=== PATIENT | female | born 1955 | race African-American/Black ===

== ENCOUNTER 2017-08-24 17:50 | Emergency (ER) | payer SELFPAY | END 2017-08-24 19:03 | disposition home or self-care (01) | LOC: ER 17:50 | DX: M25.562 Pain in left knee (principal); I10 Essential (primary) hypertension; I25.2 Old myocardial infarction; F12.10 Cannabis abuse, uncomplicated; F17.200 Nicotine dependence, unspecified, uncomplicated; Z88.6 Allergy status to analgesic agent | CPT/HCPCS: 73564; 99284 ==

== ENCOUNTER 2017-09-10 09:30 | Emergency (ER) | payer SELFPAY ==
[2017-09-10] MEDS: CYCLOBENZAPRINE 10 MG TABLET. PO ×2 (10:08)
[2017-09-10] MEDS: HYDROcodone/APAP 5/325MG 1 TAB TABLET PO ×2 (10:08)
== END 2017-09-10 10:51 | disposition home or self-care (01) ==
LOC: ER 09:30
DX: M47.816 Spondylosis without myelopathy or radiculopathy, lumbar region (principal); M16.11 Unilateral primary osteoarthritis, right hip; M54.31 Sciatica, right side; I25.2 Old myocardial infarction; I10 Essential (primary) hypertension; F12.10 Cannabis abuse, uncomplicated; F10.10 Alcohol abuse, uncomplicated; Z88.6 Allergy status to analgesic agent
CPT/HCPCS: 72100; 73502; 99284

== ENCOUNTER 2018-08-27 11:14 | Emergency (ER) | payer SELFPAY ==
[~2018-08-27] VITALS: Ht 162.6 cm; Wt 56.7 kg
[~2018-08-27 11:14] MED LIST: DICL100G18 TP; LISI-338 PO; METH-37 PO; METH4TAB2 PO; TRAM-48 PO
[2018-08-27 11:24] VITALS: BP 172/91
[2018-08-27] MEDS ORDERED: TRAM50TA PO (11:31)
--- NOTE | 2018-08-27 11:32 | PHYS DOC ---
Past Medical History Past Medical History: Hypertension, [place] Additional Past Medical Histor: "I've passed out before" [place] 2008, Past Surgical History: No Surgical History Alcohol Use: Heavy Drug Use: None Adult General Chief Complaint Chief Complaint: MULTIPLE COMPLAINTS [facility] Patient is a 62 year old [f__sex] who presents with [] Review of Systems Review of Systems Constitutional: Denies fever or chills [] Eyes: Denies change in visual acuity, redness, or eye pain [] HENT: Denies nasal congestion or sore throat [] Respiratory: Denies cough or shortness of breath [] Cardiovascular: No additional information not addressed in HPI [] GI: Denies abdominal pain, nausea, vomiting, bloody stools or diarrhea [] : Denies dysuria or hematuria [] Musculoskeletal: Denies back pain or joint pain [] Integument: Denies rash or skin lesions [] Neurologic: Denies headache, focal weakness or sensory changes [] Endocrine: Denies polyuria or polydipsia [] All other systems were reviewed and found to be within normal limits, except as documented in this note. Allergies Allergies Allergies Coded Allergies Type Severity Reaction Last Updated Verified No Known Medication Allergies Allergy Unknown 09/10/17 Yes aspirin Adverse Reaction Intermediate UPSETS STOMACH 08/02/15 Yes Physical Exam Physical Exam Constitutional: Well developed, well nourished, no acute distress, non-toxic appearance. [] HENT: Normocephalic, atraumatic, bilateral external ears normal, oropharynx moist, no oral exudates, nose normal. [] Eyes: PERRLA, EOMI, conjunctiva normal, no discharge. [] Neck: Normal range of motion, no tenderness, supple, no stridor. [] Cardiovascular:Heart rate regular rhythm, no murmur [] Lungs & Thorax: Bilateral breath sounds clear to auscultation [] Abdomen: Bowel sounds normal, soft, no tenderness, no masses, no pulsatile masses. [] Skin: Warm, dry, no erythema, no rash. [] Back: No tenderness, no CVA tenderness. [] Extremities: No tenderness, no cyanosis, no clubbing, ROM intact, no edema. [] Neurologic: Alert and oriented X 3, normal motor function, normal sensory function, no focal deficits noted. [] Psychologic: Affect normal, judgement normal, mood normal. [] Current Patient Data Vital Signs Vital Signs Date Time Temp Pulse Resp B/P (MAP) Pulse Ox O2 Delivery O2 Flow Rate FiO2 08/27/18 11:24 97.9 109 16 172/91 (118) 97 Room Air 97.9 EKG EKG [] Radiology/Procedures Radiology/Procedures [] Course & Med Decision Making Course & Med Decision Making Pertinent Labs and Imaging studies reviewed. (See chart for details) [] Dragon Disclaimer Dragon Disclaimer This electronic medical record was generated, in whole or in part, using a voice recognition dictation system. Departure Departure Impression: Primary Impression: Shoulder pain Additional Impression: Degenerative joint disease of right hip Disposition: HOME, SELF-CARE Condition: STABLE Referrals: NO PCP (PCP) Patient Instructions: Arthritis, Degenerative-Brief Additional Instructions: Take thr tramadol as directed. Continue to take your scheduled arthritis medications. Follow-up with your primary care provider to let him know your current medications are not controlling her pain. If worsening return to the emergency department. Scripts Tramadol Hcl (TRAMADOL HCL) 50 Mg Tablet 50 MG PO DAILY PRN for PAIN, #10 TAB 0 Refills Prov: HILARY MACK APRN 08/27/18 Problem Qualifiers HILARY MACK APRN Aug 27, 2018 11:32
== END 2018-08-27 11:40 | disposition home or self-care (01) ==
LOC: ER 11:14
DX: M16.11 Unilateral primary osteoarthritis, right hip (principal); M25.512 Pain in left shoulder; I10 Essential (primary) hypertension; I25.2 Old myocardial infarction; F10.20 Alcohol dependence, uncomplicated; Y90.9 Presence of alcohol in blood, level not specified; Z88.6 Allergy status to analgesic agent
CPT/HCPCS: 99283

== ENCOUNTER 2018-10-24 00:25 | Emergency (ER) | payer OTHER ==
[~2018-10-24] VITALS: Ht 162.6 cm; Wt 59.0 kg
[~2018-10-24 00:25] MED LIST changes: +TRAM50TA PO
[2018-10-24 00:45] VITALS: BP 194/91
[2018-10-24] MEDS ORDERED: HYDR-3164 PO (02:09)
[2018-10-24] MEDS ORDERED: ORPH100T PO (02:09)
--- NOTE | 2018-10-24 02:09 | PHYS DOC ---
Past Medical History Past Medical History: Hypertension, [place] Additional Past Medical Histor: "I've passed out before" [place] 2008, Chronic hip pain Past Surgical History: Tubal ligation Alcohol Use: Heavy Drug Use: None Adult General Chief Complaint Chief Complaint: HIP PAIN HPI HPI 62 y/o female presents with history of chronic right hip pain times one year. Patient reports it has been worse over the last several months. Patient reports she has been doing physical therapy without any relief. Patient does report using ibuprofen again without relief. Patient had been previously prescribed tramadol in August, which she again reports without any relief. Denies new trauma. Denies fever or chills. Patient reports she has not followed up with orthopedics. Review of Systems Review of Systems Constitutional: Denies fever or chills [] : Denies dysuria or hematuria [] Musculoskeletal: Denies back pain; reports right hip pain Integument: Denies rash or skin lesions [] Neurologic: Denies headache, focal weakness or sensory changes [] Complete systems were reviewed and found to be within normal limits, except as documented in this note. Current Medications Current Medications Current Medications Medications (Trade) Dose Ordered Sig/Declan Start Time Stop Time Status Last Admin Dose Admin Acetaminophen/ Butalbital/ Caffeine (Fioricet) 1 tab 1X ONCE 10/24/18 02:15 10/24/18 02:27 DC Cyclobenzaprine HCl (Flexeril) 10 mg 1X ONCE 10/24/18 02:30 10/24/18 02:35 DC 10/24/18 02:31 10 MG Ketorolac Tromethamine (Toradol 30mg Vial) 30 mg 1X ONCE 10/24/18 02:15 10/24/18 02:16 DC 10/24/18 02:32 30 MG Allergies Allergies Allergies Coded Allergies Type Severity Reaction Last Updated Verified No Known Medication Allergies Allergy Unknown 09/10/17 Yes aspirin Adverse Reaction Intermediate UPSETS STOMACH 08/02/15 Yes Physical Exam Physical Exam Constitutional: Well developed, well nourished, no acute distress, non-toxic appearance. [] HENT: Normocephalic, atraumatic Eyes: Conjunctiva normal, no discharge. [] Neck: Normal range of motion, no tenderness, supple Cardiovascular: Heart rate regular rhythm Lungs & Thorax: Bilateral breath sounds clear to auscultation [] Abdomen: Soft, no tenderness] Skin: Warm, dry, no erythema Extremities: Pain on ROM to right hip, no edema, no deformity, limb neurovascularly intact Neurologic: Alert and oriented X 3, no focal deficits noted. [] Psychologic: Affect normal, judgement normal, mood normal. [] Current Patient Data Vital Signs Vital Signs Date Time Temp Pulse Resp B/P (MAP) Pulse Ox O2 Delivery O2 Flow Rate FiO2 10/24/18 00:45 97.7 91 18 194/91 (125) 100 Room Air 97.7 EKG EKG [] Radiology/Procedures Radiology/Procedures Right hip/pelvis (preliminary interpretation by ED physician): Significant degeneration of right femoral head. No acute fracture noted. Course & Med Decision Making Course & Med Decision Making Pertinent Imaging studies reviewed. (See chart for details) Patient presents with acute on chronic right hip pain. Reports his been taking medication without improvement. Symptomatic treatment provided. X-ray obtained with confirmation of significantly degenerated hip. Patient stable for discharge with outpatient follow-up with PCP/orthopedics. Orthopedic referral provided. Discussed findings and plan with patient and family, who acknowledge understanding and agreement. Dragon Disclaimer Dragon Disclaimer This electronic medical record was generated, in whole or in part, using a voice recognition dictation system. Departure Departure Impression: Primary Impression: Degenerative joint disease of right hip Disposition: HOME, SELF-CARE Condition: STABLE Referrals: LAITH HILLMAN JR, MD (PCP) ANAIS SMITH II, MD Patient Instructions: Arthritis, Degenerative-Brief, Hip Pain Scripts Naproxen (NAPROXEN) 375 Mg Tablet 1 TAB PO BID, #14 TAB 0 Refills Prov: CHRISTOPHER ESCOBAR DO 10/24/18 Orphenadrine Citrate (ORPHENADRINE CITRATE) 100 Mg Tablet.er 1 TAB PO BID PRN for MUSCLE PAIN, #14 TAB Prov: CHRISTOPHER ESCOBAR DO 10/24/18 Hydrocodone/Apap 5-325 (NORCO 5-325 TABLET) 1 Each Tablet 0.5 TAB PO PRN Q6HRS PRN for PAIN, #8 TAB 0 Refills Prov: CHRISTOPHER ESCOBAR DO 10/24/18 Problem Qualifiers Primary Impression: Degenerative joint disease of right hip Osteoarthritis type: unspecified Qualified Codes: M16.11 - Unilateral primary osteoarthritis, right hip CHRISTOPHER ESCOBAR DO Oct 24, 2018 02:09
[2018-10-24] MEDS ORDERED: NAPR-695 PO (02:11)
[2018-10-24] MEDS ORDERED: BUTALB/APAP/CAFEIN 50/325/40MG TABLET. PO ONE (02:15)
[2018-10-24] MEDS ORDERED: KETOROLAC 30 MG/ML VIAL. IM ONE (02:15)
[2018-10-24] MEDS ORDERED: CYCLOBENZAPRINE 10 MG TABLET. PO ONE (02:30)
--- NOTE | 2018-10-24 07:02 | RAD ---
EXAM: AP pelvis, AP and lateral views of the right hip DATE: 10/24/2018 1:59 AM INDICATION: RIGHT HIP PAIN COMPARISON: 09/10/2017 FINDINGS: Collapse and sclerosis of the right femoral head likely from osteonecrosis or rapidly progressing pulmonary, new compared to 09/10/2017. Left hip joint space is preserved. Decreased bone mineral density. No evidence of acute fracture or dislocation. IMPRESSION: Compared to prior radiograph 09/10/2017 there is now collapse of the right femoral head possibly from osteonecrosis, mildly progressive hip OA or other arthropathy.. Electronically signed by: Tyler Olivo MD (10/24/2018 6:59 AM) [facility]
== END 2018-10-24 02:35 | disposition home or self-care (01) ==
LOC: ER 00:25
DX: M16.11 Unilateral primary osteoarthritis, right hip (principal); G89.29 Other chronic pain; I10 Essential (primary) hypertension; I25.2 Old myocardial infarction; Z98.51 Tubal ligation status; Z88.6 Allergy status to analgesic agent
CPT/HCPCS: 73502; 96372; 99283; J1885

== ENCOUNTER 2018-10-28 11:48 | Emergency (ER) | payer SELFPAY ==
[~2018-10-28] VITALS: Ht 162.6 cm; Wt 59.0 kg
[~2018-10-28 11:48] MED LIST changes: +HYDR-3164 PO; +NAPR-695 PO; +ORPH100T PO
[2018-10-28 12:00] VITALS: BP 141/77
--- NOTE | 2018-10-28 12:39 | PHYS DOC ---
Past Medical History Past Medical History: Hypertension, [place] Additional Past Medical Histor: "I've passed out before" [place] 2008, Past Surgical History: Tubal ligation Alcohol Use: Heavy Drug Use: None Adult General Chief Complaint Chief Complaint: FACE PROBLEM HPI HPI Patient is a 62 year old female with history of hypertension, [place], who presents to the ED today complaining of swelling on the right lower gum that she noted this morning. Patient denies any fever or trismus. Review of Systems Review of Systems Constitutional: Denies fever or chills [] Eyes: Denies change in visual acuity, redness, or eye pain [] HENT: Reports swelling on the right lower gum. Denies nasal congestion or sore throat [] Musculoskeletal: Denies back pain or joint pain [] Integument: Denies rash or skin lesions [] Neurologic: Denies headache, focal weakness or sensory changes [] All other systems were reviewed and found to be within normal limits, except as documented in this note. Allergies Allergies Allergies Coded Allergies Type Severity Reaction Last Updated Verified No Known Medication Allergies Allergy Unknown 09/10/17 Yes aspirin Adverse Reaction Intermediate UPSETS STOMACH 08/02/15 Yes Physical Exam Physical Exam Constitutional: Well developed, well nourished, no acute distress, non-toxic appearance. [] HENT: Normocephalic, atraumatic, bilateral external ears normal, oropharynx moist, no oral exudates, nose normal. Edentulous patient. Right lower cheek with small amount of swelling suspicious of a dental abscess thought this could also be an insect bite considering there is no erythema to the gum, there is no fluctuance to this area. Skin: Warm, dry, no erythema, no rash. [] Back: No tenderness, no CVA tenderness. [] Extremities: No tenderness, no cyanosis, no clubbing, ROM intact, no edema. [] Neurologic: Alert and oriented X 3, normal motor function, normal sensory function, no focal deficits noted. [] Psychologic: Affect normal, judgement normal, mood normal. [] Current Patient Data Vital Signs Vital Signs Date Time Temp Pulse Resp B/P (MAP) Pulse Ox O2 Delivery O2 Flow Rate FiO2 10/28/18 12:00 98.4 103 16 141/77 (98) 99 Room Air 98.4 EKG EKG [] Radiology/Procedures Radiology/Procedures [] Course & Med Decision Making Course & Med Decision Making Pertinent Labs and Imaging studies reviewed. (See chart for details) This is a 62-year-old female patient presenting to the ED today with right lower gum cheek swelling noted this morning. Right lower cheek with small amount of swelling suspicious of a dental abscess though this could also be an insect bite considering there is no erythema to the gum, there is no fluctuance to this area either. Patient was discharged on amoxicillin, also discharged on Benadryl. Follow-up with her own doctor in 1-2 weeks. Dragon Disclaimer Dragon Disclaimer This electronic medical record was generated, in whole or in part, using a voice recognition dictation system. Departure Departure Impression: Primary Impression: Dental abscess Additional Impression: Insect bite Disposition: HOME, SELF-CARE Condition: STABLE Referrals: LAITH HILLMAN JR, MD (PCP) follow up in 1-2 weeks Patient Instructions: Dental Abscess, Insect Bite, [id number] Additional Instructions: You were seen for swollen area on your right cheek, this could be a dental abscess but it could also be an insect bite. Continue taking Benadryl. Take the prescribed antibiotics until completed. Follow-up with your doctor in 1-2 weeks. Scripts Amoxicillin (AMOXICILLIN) 500 Mg Tablet 1 TAB PO BID, #20 TAB Prov: LAURA PERRY APRN 10/28/18 Problem Qualifiers Additional Impression: Insect bite Encounter type: initial encounter Site of insect bite: unspecified site Qualified Codes: W57.XXXA - Bitten or stung by nonvenomous insect and other nonvenomous arthropods, initial encounter LAURA PERRY APRN Oct 28, 2018 12:39
[2018-10-28] MEDS ORDERED: AMOX500T PO (12:47)
== END 2018-10-28 13:06 | disposition home or self-care (01) ==
LOC: ER 11:48
DX: K04.7 Periapical abscess without sinus (principal); I10 Essential (primary) hypertension; I25.2 Old myocardial infarction; Z98.51 Tubal ligation status; F10.20 Alcohol dependence, uncomplicated; Y90.9 Presence of alcohol in blood, level not specified; Z88.6 Allergy status to analgesic agent; W57.XXXA Bitten or stung by nonvenomous insect and other nonvenomous arthropods, initial encounter; Y93.89 Activity, other specified; Y92.89 Other specified places as the place of occurrence of the external cause; Y99.8 Other external cause status
CPT/HCPCS: 99283

== ENCOUNTER 2018-11-25 10:17 | Emergency (ER) | payer SELFPAY ==
[~2018-11-25] VITALS: Ht 162.6 cm; Wt 59.0 kg
[~2018-11-25 10:17] MED LIST changes: +AMOX500T PO
[2018-11-25 10:54] VITALS: BP 162/93
[2018-11-25] MEDS ORDERED: KETOROLAC 60 MG/2 ML VIAL. IM ONE (11:00)
--- NOTE | 2018-11-25 11:20 | PHYS DOC ---
Past Medical History Past Medical History: Hypertension, [place] Additional Past Medical Histor: "I've passed out before" [place] 2008, Past Surgical History: Tubal ligation Alcohol Use: Heavy Drug Use: None Adult General Chief Complaint Chief Complaint: HIP PAIN HPI HPI Patient is a 63 year old female presents to the ED complaining of right hip pain. States the pain started to worsen about a week ago. Patient had some other symptoms a month ago and had been told that she has arthritis. Describes the pain as sharp. Rates the pain as 8 out 10. Patient able to ambulate without assistance. States she has been taking Tylenol at home without relief. Patient has plans to follow-up with an orthopedic doctor in [place] later this month. Denies injury, weakness, paresthesias, calf pain/swelling, fever, nausea/vomiting, chest pain, abdominal pain or shortness of breath. Review of Systems Review of Systems Constitutional: Denies fever or chills [] Eyes: Denies change in visual acuity, redness, or eye pain [] HENT: Denies nasal congestion or sore throat [] Respiratory: Denies cough or shortness of breath [] Cardiovascular: No additional information not addressed in HPI [] GI: Denies abdominal pain, nausea, vomiting, bloody stools or diarrhea [] : Denies dysuria or hematuria [] Musculoskeletal: Complains of hip pain. Denies back pain. [] Integument: Denies rash or skin lesions [] Neurologic: Denies headache, focal weakness or sensory changes [] All other systems were reviewed and found to be within normal limits, except as documented in this note. Current Medications Current Medications Current Medications Medications (Trade) Dose Ordered Sig/[facility] Start Time Stop Time Status Last Admin Dose Admin Ketorolac Tromethamine (Toradol Im) 30 mg 1X ONCE 11/25/18 11:00 11/25/18 11:03 DC 11/25/18 11:00 30 MG Allergies Allergies Allergies Coded Allergies Type Severity Reaction Last Updated Verified No Known Medication Allergies Allergy Unknown 09/10/17 Yes aspirin Adverse Reaction Intermediate UPSETS STOMACH 08/02/15 Yes Physical Exam Physical Exam Constitutional: Well developed, well nourished, no acute distress, non-toxic appearance. [] HENT: Normocephalic, atraumatic Eyes: PERRLA, EOMI, conjunctiva normal, no discharge. [] Neck: Normal range of motion, no tenderness, supple, no stridor. [] Cardiovascular:Heart rate regular rhythm, no murmur [] Lungs & Thorax: Bilateral breath sounds clear to auscultation [] Abdomen: Bowel sounds normal, soft, no tenderness, no masses, no pulsatile masses. [] Skin: Warm, dry, no erythema, no rash. [] Back: No tenderness, no CVA tenderness. [] Extremities: Mild right lateral hip tenderness, no cyanosis, no clubbing, No overlying skin changes. ROM intact, no edema. 2+ pulses. [] Neurologic: Alert and oriented X 3, normal motor function, normal sensory function, no focal deficits noted. [] Psychologic: Affect normal, judgement normal, mood normal. [] Current Patient Data Vital Signs Vital Signs Date Time Temp Pulse Resp B/P (MAP) Pulse Ox O2 Delivery O2 Flow Rate FiO2 11/25/18 10:54 97.8 103 16 162/93 (116) 99 Room Air 97.8 EKG EKG [] Radiology/Procedures Radiology/Procedures []PROCEDURE: HIP RIGHT 2V WITH PELVIS AP view of the pelvis, additional views right hip 11/25/2018 INDICATION: Right hip pain COMPARISON STUDY: Right hip radiographs October 24, 2018 Discussion: Again seen is severe degenerative change of the right hip. Sclerosis and deformity of the right femoral head suggests possible prior necrosis. There is essentially obliteration of the joint space. No acute soft tissue changes are appreciated radiographically. No evidence of acute fracture is identified. IMPRESSION: Grossly stable severe degenerative changes of the right hip. Course & Med Decision Making Course & Med Decision Making Pertinent Labs and Imaging studies reviewed. (See chart for details) Discussed imaging findings with patient. Patient able to ambulate without assistance. No traumatic injury. Discussed follow-up with orthopedics as scheduled. We'll prescribe analgesics outpatient. Discussed reasons to return to the ED. Patient understands and agrees with plan. Dragon Disclaimer Dragon Disclaimer This electronic medical record was generated, in whole or in part, using a voice recognition dictation system. Departure Departure Impression: Primary Impression: Arthritis Additional Impression: Hip pain, right Disposition: HOME, SELF-CARE Condition: IMPROVED Referrals: LAITH HLILMAN JR, MD (PCP) Patient Instructions: Arthritis, Nonspecific, Hip Pain Scripts Hydrocodone/Apap 5-325 (NORCO 5-325 TABLET) 1 Each Tablet 1 TAB PO BID for 4 Days, #8 TAB Prov: DONTE KENNEDY 11/25/18 Problem Qualifiers DONTE KENNEDY November 25, 2018 11:19
[2018-11-25] MEDS ORDERED: HYDR-3164 PO (11:24)
== END 2018-11-25 11:34 | disposition home or self-care (01) ==
LOC: ER 10:17
DX: M16.11 Unilateral primary osteoarthritis, right hip (principal); I10 Essential (primary) hypertension; I25.2 Old myocardial infarction; F10.20 Alcohol dependence, uncomplicated; Y90.9 Presence of alcohol in blood, level not specified; Z98.51 Tubal ligation status; Z88.6 Allergy status to analgesic agent
CPT/HCPCS: 73502; 96372; 99284; J1885

== ENCOUNTER 2020-09-18 12:58 | Inpatient (IN) | payer SELFPAY ==
[~2020-09-18] VITALS: Ht 162.6 cm; Wt 58.1 kg
[~2020-09-18 12:58] MED LIST changes: -DICL100G18 TP; +DICL100G54 TP; -LISI-338 PO; +LISI-517 PO
[2020-09-18 13:48] LABS: BASO # 0.1 x10^3/uL (0.0-0.2); BASO % 1 % (0-3); EOS # 0.1 x10^3/uL (0.0-0.7); EOS % 3 % (0-3); HEMATOCRIT 33.3 % (36.0-47.0); HEMOGLOBIN 11.3 g/dL (12.0-15.5); LYMPH # 1.5 x10^3/uL (1.0-4.8); LYMPH % 31 % (24-48); MEAN CORPUSCULAR HEMOGLOBIN 31 pg (25-35); MEAN CORPUSCULAR HGB CONC 34 g/dL (31-37); MEAN CORPUSCULAR VOLUME 92 fL (79-100); MONO # 0.4 x10^3/uL (0.0-1.1); MONO % 7 % (0-9); NEUT # 2.8 x10^3/uL (1.8-7.7); NEUT % 58 % (31-73); PLATELET COUNT 241 x10^3/uL (140-400); RED BLOOD COUNT 3.62 x10^6/uL (3.50-5.40); RED CELL DISTRIBUTION WIDTH 13.4 % (11.5-14.5); WHITE BLOOD COUNT 4.8 x10^3/uL (4.0-11.0)
[2020-09-18 14:01] LABS: CALCIUM 9.1 mg/dL (8.5-10.1); CREATININE 1.3 mg/dL (0.6-1.0); GFR 50.1; POTASSIUM 5.1 mmol/L (3.5-5.1)
--- NOTE | 2020-09-18 14:02 | RAD ---
INDICATION: Reason: chest pain / Spl. Instructions: / History: COMPARISON: January 01, 2018 FINDINGS: Single view of chest obtained. Cardiac silhouette is not enlarged. Calcific atherosclerosis. Coarsened lung markings appear similar to prior without a new region of consolidation. IMPRESSION: * Similar appearance of the chest compared to prior without new region of consolidation. Electronically signed by: Barney Nicholson MD (09/18/2020 1:59 PM) [id number]
[2020-09-18 14:06] LABS: ALBUMIN 4.1 g/dL (3.4-5.0); ALBUMIN/GLOBULIN RATIO 1.1 (1.0-1.7); MAGNESIUM 1.5 mg/dL (1.8-2.4); TOTAL BILIRUBIN 0.4 mg/dL (0.2-1.0); TOTAL PROTEIN 7.9 g/dL (6.4-8.2)
[2020-09-18] MEDS ORDERED: MAGNESIUM SULFATE 2GM 50 ML IV ONE (14:15)
[2020-09-18] MEDS ORDERED: METOPROLOL IV PUSH 5 MG/5 ML VIAL. IVP ONE (14:30)
[2020-09-18] MEDS ORDERED: IOHEXOL 350 MG/ML 100 ML VIAL. IV ONE (15:15)
--- NOTE | 2020-09-18 15:15 | PHYS DOC ---
Past Medical History Past Medical History: Hypertension, [place] Additional Past Medical Histor: "I've passed out before" [place] 2009, Past Surgical History: Tubal ligation Smoking Status: Current Every Day Smoker Alcohol Use: Heavy Drug Use: None General Adult EDM: Chief Complaint: CHEST PAIN HPI: HPI: Patient is a 64 year old female who presented to ER for evaluation of right-lamont ed chest pain started 2 days ago. Patient also had trouble breathing, chest pain he had worse with exertion or cough. Patient has history of COVID-19 infection last year. Patient denies any fever. Patient has history of coronary disease the past, has history of hypertension. Patient denies any abdominal pain, no nausea vomiting. Review of Systems: Review of Systems: Constitutional: Denies fever or chills. [] Eyes: Denies change in visual acuity. [] HENT: Denies nasal congestion or sore throat. [] Respiratory: Denies cough, positive for trouble breathing. Cardiovascular: Positive for chest pain, no edema GI: Denies abdominal pain, nausea, vomiting, bloody stools or diarrhea. [] : Denies dysuria. [] Musculoskeletal: Denies back pain or joint pain. [] Integument: Denies rash. [] Neurologic: Denies headache, focal weakness or sensory changes. [] Endocrine: Denies polyuria or polydipsia. [] Lymphatic: Denies swollen glands. [] Psychiatric: Denies depression or anxiety. [] Heart Score: HEART Score for Chest Pain: HEART Score for Chest Pain Response (Comments) Value History Moderately Suspicious 1 ECG Nonspecific Repolarizatio 1 Age >45 - < 65 1 Risk Factors >3 Risk Factors or Hx CAD 2 Troponin < Normal Limit 0 Total 5 Risk Factors: Risk Factors: DM, Current or recent (<one month) smoker, HTN, HLP, family history of CAD, obesity. Risk Scores: Score 0 - 3: 2.5% MACE over next 6 weeks - Discharge Home Score 4 - 6: 20.3% MACE over next 6 weeks - Admit for Clinical Observation Score 7 - 10: 72.7% MACE over next 6 weeks - Early Invasive Strategies Current Medications: Current Medications Medications (Trade) Dose Ordered Sig/Declan Start Time Stop Time Status Last Admin Dose Admin Magnesium Sulfate 50 ml @ 25 mls/hr 1X ONCE 09/18/20 14:15 09/18/20 16:14 09/18/20 14:35 25 MLS/HR Metoprolol Tartrate (Lopressor Vial) 5 mg 1X ONCE 09/18/20 14:30 09/18/20 14:31 DC 09/18/20 14:34 5 MG Allergies: Allergies: Allergies Coded Allergies Type Severity Reaction Last Updated Verified No Known Medication Allergies Allergy Unknown 09/10/17 Yes aspirin Adverse Reaction Intermediate UPSETS STOMACH 08/02/15 Yes Physical Exam: PE: Constitutional: Well developed, well nourished, no acute distress, non-toxic appearance. [] HENT: Normocephalic, atraumatic, bilateral external ears normal, oropharynx moist, no oral exudates, nose normal. [] Eyes: PERRLA, EOMI, conjunctiva normal, no discharge. [] Neck: Normal range of motion, no tenderness, supple, no stridor. [] Cardiovascular: Sinus tachycardia, regular rhythm, no murmur [] Lungs & Thorax: Bilateral breath sounds clear to auscultation [] Abdomen: Bowel sounds normal, soft, no tenderness, no masses, no pulsatile masses. [] Skin: Warm, dry, no erythema, no rash. [] Back: No tenderness, no CVA tenderness. [] Extremities: No tenderness, no cyanosis, no clubbing, ROM intact, no edema. [] Neurologic: Alert and oriented X 3, normal motor function, normal sensory function, no focal deficits noted. [] Psychologic: Affect normal, judgement normal, mood normal. [] Current Patient Data: Labs: Laboratory Tests Test 09/18/20 13:33 White Blood Count 4.8 x10^3/uL (4.0-11.0) Red Blood Count 3.62 x10^6/uL (3.50-5.40) Hemoglobin 11.3 g/dL (12.0-15.5) L Hematocrit 33.3 % (36.0-47.0) L Mean Corpuscular Volume 92 fL (79-100) Mean Corpuscular Hemoglobin 31 pg (25-35) Mean Corpuscular Hemoglobin Concent 34 g/dL (31-37) Red Cell Distribution Width 13.4 % (11.5-14.5) Platelet Count 241 x10^3/uL (140-400) Neutrophils (%) (Auto) 58 % (31-73) Lymphocytes (%) (Auto) 31 % (24-48) Monocytes (%) (Auto) 7 % (0-9) Eosinophils (%) (Auto) 3 % (0-3) Basophils (%) (Auto) 1 % (0-3) Neutrophils # (Auto) 2.8 x10^3/uL (1.8-7.7) Lymphocytes # (Auto) 1.5 x10^3/uL (1.0-4.8) Monocytes # (Auto) 0.4 x10^3/uL (0.0-1.1) Eosinophils # (Auto) 0.1 x10^3/uL (0.0-0.7) Basophils # (Auto) 0.1 x10^3/uL (0.0-0.2) Sodium Level 139 mmol/L (136-145) Potassium Level 5.1 mmol/L (3.5-5.1) Chloride Level 101 mmol/L (98-107) Carbon Dioxide Level 19 mmol/L (21-32) L Anion Gap 19 (6-14) H Blood Urea Nitrogen 15 mg/dL (7-20) Creatinine 1.3 mg/dL (0.6-1.0) H Estimated GFR (Cockcroft-Gault) 50.1 BUN/Creatinine Ratio 12 (6-20) Glucose Level 60 mg/dL (70-99) L Calcium Level 9.1 mg/dL (8.5-10.1) Magnesium Level 1.5 mg/dL (1.8-2.4) L Total Bilirubin 0.4 mg/dL (0.2-1.0) Aspartate Amino Transferase (AST) 87 U/L (15-37) H Alanine Aminotransferase (ALT) 57 U/L (14-59) Alkaline Phosphatase 85 U/L (46-116) Troponin I Quantitative < 0.017 ng/mL (0.000-0.055) HN-Mmm-O-Type Natriuretic Peptide 252 pg/mL (0-124) H Total Protein 7.9 g/dL (6.4-8.2) Albumin 4.1 g/dL (3.4-5.0) Albumin/Globulin Ratio 1.1 (1.0-1.7) Lipase 137 U/L (73-393) Laboratory Tests 09/18/20 13:33 Laboratory Tests 09/18/20 13:33 Vital Signs: Vital Signs Date Time Temp Pulse Resp B/P (MAP) Pulse Ox O2 Delivery O2 Flow Rate FiO2 09/18/20 14:34 114 141/86 09/18/20 13:05 98.2 29 99 Room Air 98.2 EKG: EKG: EKG was done at 1315, heart rate 121 bpm, sinus tachycardia, no ST segment elevation. Radiology/Procedures: Radiology/Procedures: [][facility] [address] [place] [address] IMAGING REPORT Signed PATIENT: LAURA PINEDA ACCOUNT: [id number] : 1955 LOCATION: ER AGE: 64 SEX: F EXAM STATUS: REG ER ORD. PHYSICIAN: REGAN TURCIOS DO REASON: CHEST PAIN, SOA PROCEDURE: CT ANGIOGRAPHY CHEST Study: CT CHEST WITH CONTRAST - PULMONARY ANGIOGRAM History: Chest pain. Shortness of air. Comparison: 11/18/2013 Technique: Helical CT of the chest performed after the administration of 60 cc Omnipaque 350 intravenous contrast and timed for angiographic evaluation of the pulmonary arteries per PE protocol. Coronal and sagittal 3D MIP reformations were obtained. One or more of the following individualized dose reduction techniques were utilized for this examination: 1. Automated exposure control 2. Adjustment of the mA and/or kV according to patient size 3. Use of iterative reconstruction technique. Findings: Pulmonary Arteries: No main, lobar or segmental pulmonary embolism. Heart/Systemic Vasculature: Multifocal calcified and noncalcified atheromatous plaque to include coronary artery involvement. No aortic aneurysm or dissection. Patent partially imaged great vessels. No CT manifestations of right heart strain. Mediastinum: Scattered granulomas. No pathologically enlarged noncalcified lymph nodes. Lungs: Emphysema. No new or enlarging pulmonary nodule. Patent central airways. Neck/Axilla/Body Wall: Unchanged focus of mineralization along the right aspect of the thyroid isthmus. No axillary adenopathy. Upper Abdomen: Hepatic steatosis. Bones: No acute or aggressive osseous process. Scattered degenerative changes. Miscellaneous: None. IMPRESSION: 1. No pulmonary embolism or other acute abnormality seen throughout the chest. 2. Chronic observations detailed in the body the report to include emphysema. If the patient meets screening guidelines annual low dose CT of the chest is r ecommended. Electronically signed by: CATHY DAMON MD (09/18/2020 3:48 PM) [facility] DICTATED and SIGNED BY: CATHY DAMON MD DATE: 09/18/20 [id number] 0 Course & Med Decision Making: Course & Med Decision Making Pertinent Labs and Imaging studies reviewed. (See chart for details) Patient is a 64-year-old female who presented to ER due to chest pain associated with trouble breathing, hypertension. EKG shows sinus tachycardia, her blood pressure was elevated. Cardiac enzyme came back normal. CT scan her chest did not show any acute problem. Patient had COVID-19 infection last year. Due to her risk factors patient will be admitted to hospital for further evaluation and treatment. Patient is amenable to plan of care discussed with hospitalist on- call Dr. Smith who agreed to admit the patient. Dragon Disclaimer: Dragon Disclaimer: This electronic medical record was generated, in whole or in part, using a voice recognition dictation system. Departure Departure Impression: Primary Impression: Chest pain Additional Impression: Hypertension Disposition: ADMITTED INPT THIS HOSP Admitting Physician: BRANDO (Dr. smith) Condition: IMPROVED Referrals: LAITH HILLMAN JR, MD (PCP) REGAN TURCIOS DO Sep 18, 2020 15:15
[2020-09-18] MEDS ORDERED: CONTRAST GIVEN. MC PRN (15:30)
--- NOTE | 2020-09-18 15:50 | RAD ---
Study: CT CHEST WITH CONTRAST - PULMONARY ANGIOGRAM History: Chest pain. Shortness of air. Comparison: 11/18/2013 Technique: Helical CT of the chest performed after the administration of 60 cc Omnipaque 350 intrave nous contrast and timed for angiographic evaluation of the pulmonary arteries per PE protocol. Hart l and sagittal 3D MIP reformations were obtained. One or more of the following individualized dose reduction techniques were utilized for this examinat ion: 1. Automated exposure control 2. Adjustment of the mA and/or kV according to patient size 3. Use of iterative reconstruction technique. Findings: Pulmonary Arteries: No main, lobar or segmental pulmonary embolism. Heart/Systemic Vasculature: Multifocal calcified and noncalcified atheromatous plaque to include litzy nary artery involvement. No aortic aneurysm or dissection. Patent partially imaged great vessels. No CT manifestations of right heart strain. Mediastinum: Scattered granulomas. No pathologically enlarged noncalcified lymph nodes. Lungs: Emphysema. No new or enlarging pulmonary nodule. Patent central airways. Neck/Axilla/Body Wall: Unchanged focus of mineralization along the right aspect of the thyroid isthmu s. No axillary adenopathy. Upper Abdomen: Hepatic steatosis. Bones: No acute or aggressive osseous process. Scattered degenerative changes. Miscellaneous: None. IMPRESSION: 1. No pulmonary embolism or other acute abnormality seen throughout the chest. 2. Chronic observations detailed in the body the report to include emphysema. If the patient meets s creening guidelines annual low dose CT of the chest is recommended. Electronically signed by: CATHY DAMON MD (09/18/2020 3:48 PM) [facility]
--- NOTE | 2020-09-18 15:52 | EKG ---
[facility] [address] [place] [address] Test Date: 2020-09-18 Test Time: 13:15:13 Pat Name: LAURA PINEDA Department: Room: Gender: F [place]: : 1955 Requested By: REGAN TURCIOS Order Number: [id number] Reading MD: Abel Ramirez MD Measurements Intervals [place] Rate: 121 P: 57 OK: 156 QRS: 59 QRSD: 86 T: 75 QT: 316 QTc: 451 Interpretive Statements SINUS TACHYCARDIA Electronically Signed On 09-19-2020 17:14:37 SIGHT MOUNTER by Abel Ramirez MD
[2020-09-18 15:58] LABS: BILIRUBIN,URINE NEGATIVE (NEG); CLARITY,URINE CLEAR; COLOR,URINE YELLOW; NITRITE,URINE NEGATIVE (NEG); PROTEIN,URINE NEGATIVE (NEG-TRACE); UROBILINOGEN,URINE 0.2 mg/dL (0.2 mg/dL)
[2020-09-18 16:09] LABS: BACTERIA,URINE 0 /HPF (0-FEW); RBC,URINE 0 /HPF (0-2); WBC,URINE OCC /HPF (0-4)
[2020-09-18] MEDS ORDERED: MORPHINE SULFATE 4 MG/ML VIAL. IV PRN (16:45)
[2020-09-18] MEDS ORDERED: ONDANSETRON PF 4 MG/2 ML VIAL. IV PRN (16:45)
[2020-09-18 17:40] VITALS: BP 198/99
[2020-09-18] MEDS ORDERED: LISI-130 PO (17:49)
[2020-09-18] MEDS: METOPROLOL IV PUSH 5 MG/5 ML VIAL. IVP PRN (18:07)
[2020-09-18] MEDS ORDERED: DEXTROSE 50% 25 GM / 50ML DISP.SYRIN. IV PRN (18:45)
[2020-09-18] MEDS ORDERED: diazePAM 5 MG TABLET PO ONE (18:45)
--- NOTE | 2020-09-18 18:58 | PDOC1 ---
History and Physical Date of Admission Date of Admission DATE: 09/18/20 TIME: 18:55 Source Source: Chart review, Patient History of Present Illness History of Present Illness is a 64 year old female admit with chest pain, had worsenign pain over the past week, pain worse with exertion, but also with movement, she can press on her right and cause pain. Pain more severe today, she is having a lot of stress from her 15 yo grand- daughter who lives at home and has been out of school for a year due to COVID. Ms. Koch also feels short of breath, has no cough or dyspnea, or general myalgia. Patient has history of COVID-19 infection last year. Past Medical History Cardiovascular: CAD, HTN, [place] Pulmonary: No pertinent hx GI: No pertinent hx Heme/Onc: No pertinent hx Hepatobiliary: No pertinent hx Psych: No pertinent hx Past Surgical History Past Surgical History: No pertinent history Family History Family History: Cancer, Coronary Artery Disease, Hypertension Social History Smoke: 1 pack per day ALCOHOL: heavy Drugs: None Current Problem List Problem List Problems Medical Problems: (1) Chest pain Status: Acute (2) Hypertension Status: Acute Current Medications Current Medications Current Medications Magnesium Sulfate 50 ml @ 25 mls/hr 1X ONCE IV Last administered on 09/18/20at 14:35; Start 09/18/20 at 14:15; Stop 09/18/20 at 16:14; Status DC Metoprolol Tartrate (Lopressor Vial) 5 mg 1X ONCE IVP Last administered on 09/18/20at 14:34; Start 09/18/20 at 14:30; Stop 09/18/20 at 14:31; Status DC Iohexol (Omnipaque 350 Mg/ml) 60 ml 1X ONCE IV Last administered on 09/18/20at 15:36; Start 09/18/20 at 15:15; Stop 09/18/20 at 15:16; Status DC Info (CONTRAST GIVEN -- Rx MONITORING) 1 each PRN DAILY PRN MC SEE COMMENTS; Start 09/18/20 at 15:30; Stop 09/20/20 at 15:29 Ondansetron HCl (Zofran) 4 mg PRN Q8HRS PRN IV NAUSEA/VOMITING; Start 09/18/20 at 16:45; Stop 09/19/20 at 16:44 Morphine Sulfate (Morphine Sulfate) 4 mg PRN Q2HR PRN IV PAIN Last administered on 09/18/20at 18:07; Start 09/18/20 at 16:45; Stop 09/19/20 at 16:44 Metoprolol Tartrate (Lopressor Vial) 5 mg PRN Q6HRS PRN IVP HYPERTENSION Last administered on 09/18/20at 18:07; Start 09/18/20 at 17:45 Metoprolol Tartrate (Lopressor) 50 mg BID PO ; Start 09/18/20 at 21:00 Active Scripts Active Reported Lisinopril 40 Mg Tablet 1 Tab PO DAILY Allergies Allergies: Coded Allergies: aspirin (Verified Adverse Reaction, Intermediate, UPSETS STOMACH, 08/02/15) ROS General: No: Chills, Night Sweats, Fatigue, Malaise, Appetite, Other PSYCHOLOGICAL ROS: YES: Irritablity, Sleep disturbances; No: Anxiety, Behavioral Disorder, Concentration difficultie, Decreased libido, Depression, Disorientation, Hallucinations, Hostility, Memory difficulties, Mood Swings, Obsessive thoughts, Physical abuse, Sexual abuse, Suicidal ideation, Other Eyes: No Blurry vision, No Decreased vision, No Double vision, No Dry eyes, No Eye Pain, No Itchy Eyes, No Loss of vision, No Photophobia, No Scotomata, No Uses contacts, No Uses glasses, No Other HEENT: YES: Heacaches Respiratory: No: Cough, Hemoptysis, Orthopnea, Pleuritic Pain, Shortness of breath, SOB with excertion, Sputum Changes, Stridor, Tachypnea, Wheezing, Other Cardiovascular: yes Chest Pain; No Palpitations, No Orthopnea, No Paroxysmal Noc. Dyspnea, No Edema, No Lt Headedness, No Other Gastrointestinal: No Nausea, No Vomiting, No Abdominal Pain, No Diarrhea, No Constipation, No Melena, No Hematochezia, No Other Genitourinary: No Dysuria, No Frequency, No Incontinence, No Hematuria, No Retention, No Discharge, No Urgency, No Pain, No Flank Pain, No Other, No , No , No , No , No , No , No Musculoskeletal: Yes Joint Pain (shoulder, ), Yes Joint Stiffness Neurological: No Behavorial Changes, No Bowel/Bladder ControlChng, No Confusion, No Dizziness, No Gait Disturbance, No Headaches, No Impaired Coord/balance, No Memory Loss, No Numbness/Tingling, No Seizures, No Speech Problems, No Tremors, No Visual Changes, No Weakness, No Other Skin: Yes Dry Skin Physical Exam General: Alert, Oriented X3, Cooperative, mild distress HEENT: Atraumatic, PERRLA Lungs: Clear to auscultation Heart: S1S2, RRR Abdomen: Normal bowel sounds, Soft Extremities: No clubbing Skin: No rashes Neuro: Normal speech, Sensation intact, Other (mild asterixis, 2 beat nys tagmus, ) Psych/Mental Status: Mood NL Vitals Vitals Vital Signs Date Time Temp Pulse Resp B/P (MAP) Pulse Ox O2 Delivery O2 Flow Rate FiO2 09/18/20 18:07 107 198/99 09/18/20 18:07 18 Room Air 09/18/20 17:40 97.9 98 97.9 Labs Labs Laboratory Tests Test 09/18/20 13:33 09/18/20 15:47 09/18/20 18:03 White Blood Count 4.8 x10^3/uL (4.0-11.0) Red Blood Count 3.62 x10^6/uL (3.50-5.40) Hemoglobin 11.3 g/dL (12.0-15.5) Hematocrit 33.3 % (36.0-47.0) Mean Corpuscular Volume 92 fL (79-100) Mean Corpuscular Hemoglobin 31 pg (25-35) Mean Corpuscular Hemoglobin Concent 34 g/dL (31-37) Red Cell Distribution Width 13.4 % (11.5-14.5) Platelet Count 241 x10^3/uL (140-400) Neutrophils (%) (Auto) 58 % (31-73) Lymphocytes (%) (Auto) 31 % (24-48) Monocytes (%) (Auto) 7 % (0-9) Eosinophils (%) (Auto) 3 % (0-3) Basophils (%) (Auto) 1 % (0-3) Neutrophils # (Auto) 2.8 x10^3/uL (1.8-7.7) Lymphocytes # (Auto) 1.5 x10^3/uL (1.0-4.8) Monocytes # (Auto) 0.4 x10^3/uL (0.0-1.1) Eosinophils # (Auto) 0.1 x10^3/uL (0.0-0.7) Basophils # (Auto) 0.1 x10^3/uL (0.0-0.2) Sodium Level 139 mmol/L (136-145) Potassium Level 5.1 mmol/L (3.5-5.1) Chloride Level 101 mmol/L (98-107) Carbon Dioxide Level 19 mmol/L (21-32) Anion Gap 19 (6-14) Blood Urea Nitrogen 15 mg/dL (7-20) Creatinine 1.3 mg/dL (0.6-1.0) Estimated GFR (Cockcroft-Gault) 50.1 BUN/Creatinine Ratio 12 (6-20) Glucose Level 60 mg/dL (70-99) Calcium Level 9.1 mg/dL (8.5-10.1) Magnesium Level 1.5 mg/dL (1.8-2.4) Total Bilirubin 0.4 mg/dL (0.2-1.0) Aspartate Amino Transf (AST/SGOT) 87 U/L (15-37) Alanine Aminotransferase (ALT/SGPT) 57 U/L (14-59) Alkaline Phosphatase 85 U/L (46-116) Troponin I Quantitative < 0.017 ng/mL (0.000-0.055) < 0.017 ng/mL (0.000-0.055) FD-Aso-K-Type Natriuretic Peptide 252 pg/mL (0-124) Total Protein 7.9 g/dL (6.4-8.2) Albumin 4.1 g/dL (3.4-5.0) Albumin/Globulin Ratio 1.1 (1.0-1.7) Lipase 137 U/L (73-393) Urine Collection Type Unknown Urine Color Yellow Urine Clarity Clear Urine pH 6.0 (<5.0-8.0) Urine Specific [place] 1.010 (1.000-1.030) Urine Protein Negative mg/dL (NEG-TRACE) Urine Glucose (UA) Negative mg/dL (NEG) Urine Ketones (Stick) Negative mg/dL (NEG) Urine Blood Negative (NEG) Urine Nitrite Negative (NEG) Urine Bilirubin Negative (NEG) Urine Urobilinogen Dipstick 0.2 mg/dL (0.2 mg/dL) Urine Leukocyte Esterase Negative (NEG) Urine RBC 0 /HPF (0-2) Urine WBC Occ /HPF (0-4) Urine Squamous Epithelial Cells Mod /LPF Urine Bacteria 0 /HPF (0-FEW) Laboratory Tests Test 09/18/20 13:33 09/18/20 15:47 09/18/20 18:03 White Blood Count 4.8 x10^3/uL (4.0-11.0) Red Blood Count 3.62 x10^6/uL (3.50-5.40) Hemoglobin 11.3 g/dL (12.0-15.5) Hematocrit 33.3 % (36.0-47.0) Mean Corpuscular Volume 92 fL (79-100) Mean Corpuscular Hemoglobin 31 pg (25-35) Mean Corpuscular Hemoglobin Concent 34 g/dL (31-37) Red Cell Distribution Width 13.4 % (11.5-14.5) Platelet Count 241 x10^3/uL (140-400) Neutrophils (%) (Auto) 58 % (31-73) Lymphocytes (%) (Auto) 31 % (24-48) Monocytes (%) (Auto) 7 % (0-9) Eosinophils (%) (Auto) 3 % (0-3) Basophils (%) (Auto) 1 % (0-3) Neutrophils # (Auto) 2.8 x10^3/uL (1.8-7.7) Lymphocytes # (Auto) 1.5 x10^3/uL (1.0-4.8) Monocytes # (Auto) 0.4 x10^3/uL (0.0-1.1) Eosinophils # (Auto) 0.1 x10^3/uL (0.0-0.7) Basophils # (Auto) 0.1 x10^3/uL (0.0-0.2) Sodium Level 139 mmol/L (136-145) Potassium Level 5.1 mmol/L (3.5-5.1) Chloride Level 101 mmol/L (98-107) Carbon Dioxide Level 19 mmol/L (21-32) Anion Gap 19 (6-14) Blood Urea Nitrogen 15 mg/dL (7-20) Creatinine 1.3 mg/dL (0.6-1.0) Estimated GFR (Cockcroft-Gault) 50.1 BUN/Creatinine Ratio 12 (6-20) Glucose Level 60 mg/dL (70-99) Calcium Level 9.1 mg/dL (8.5-10.1) Magnesium Level 1.5 mg/dL (1.8-2.4) Total Bilirubin 0.4 mg/dL (0.2-1.0) Aspartate Amino Transf (AST/SGOT) 87 U/L (15-37) Alanine Aminotransferase (ALT/SGPT) 57 U/L (14-59) Alkaline Phosphatase 85 U/L (46-116) Troponin I Quantitative < 0.017 ng/mL (0.000-0.055) < 0.017 ng/mL (0.000-0.055) ZR-Gcm-Q-Type Natriuretic Peptide 252 pg/mL (0-124) Total Protein 7.9 g/dL (6.4-8.2) Albumin 4.1 g/dL (3.4-5.0) Albumin/Globulin Ratio 1.1 (1.0-1.7) Lipase 137 U/L (73-393) Urine Collection Type Unknown Urine Color Yellow Urine Clarity Clear Urine pH 6.0 (<5.0-8.0) Urine Specific [place] 1.010 (1.000-1.030) Urine Protein Negative mg/dL (NEG-TRACE) Urine Glucose (UA) Negative mg/dL (NEG) Urine Ketones (Stick) Negative mg/dL (NEG) Urine Blood Negative (NEG) Urine Nitrite Negative (NEG) Urine Bilirubin Negative (NEG) Urine Urobilinogen Dipstick 0.2 mg/dL (0.2 mg/dL) Urine Leukocyte Esterase Negative (NEG) Urine RBC 0 /HPF (0-2) Urine WBC Occ /HPF (0-4) Urine Squamous Epithelial Cells Mod /LPF Urine Bacteria 0 /HPF (0-FEW) VTE Prophylaxis Ordered VTE Prophylaxis Devices: Yes VTE Pharmacological Prophylaxi: Yes Assessment/Plan Assessment/Plan right shoulder pain, worsening this week, r/o ACS started in ER, but pain is reproducible, will try lidoderm patch and consult Dr. Garcia for musculoskeltal shoulder pain, acute metabolic gap acidosis, hx of prior EtOH abuse, and mild transaminitis would support that, will give Valium and thiamine, start CIWA protocol, she denies drinking for the past 2 days, drank heavy on 09/15/20, and reports that she has not been drinking much lately. tobacco use disorder accelerated htn, lopressor, cont home lisinopril tachycardia, tachypnea, SIRS, nos Justifications for Admission Other Justification DAPHNIE ROBLES MD Sep 18, 2020 18:58
[2020-09-18 19:40] VITALS: BP 196/87
[2020-09-18] MEDS: LIDOCAINE (700MG/PATCH) PATCH. TD SCH ×2 (20:40→21:00)
[2020-09-18] MEDS: METOPROLOL TART IMMED RELEASE 50 MG TABLET. PO SCH (20:41)
[2020-09-18] MEDS: LISINOPRIL 20 MG TABLET PO SCH (20:46)
[2020-09-18] MEDS: NICOTINE 21MG PATCH. TD SCH (20:46)
[2020-09-18] MEDS: THIAMINE 100 MG TABLET. PO SCH (20:46)
[2020-09-18 23:10] VITALS: BP 189/95
[2020-09-18] MEDS: ACETAMINOPHEN 325 MG TABLET. PO PRN (23:16)
[2020-09-19] MEDS: METOPROLOL IV PUSH 5 MG/5 ML VIAL. IVP PRN (01:07)
[2020-09-19 01:42] VITALS: BP 178/91
[2020-09-19 03:10] VITALS: BP 161/97
[2020-09-19] MEDS: ACETAMINOPHEN 325 MG TABLET. PO PRN (05:45)
--- NOTE | 2020-09-19 06:38 | PDOC ---
[employer] PROGRESS NOTE Date of Service DOS: DATE: 09/19/20 TIME: 06:34 Chief Complaint Chief Complaint right shoulder pain, worsening this week, r/o ACS started in ER, but pain is reproducible, will try lidoderm patch and consult Dr. Garcia for musculoskeltal shoulder pain, acute metabolic gap acidosis, hx of prior EtOH abuse, and mild transaminitis would support that, will give Valium and thiamine, start CIWA protocol, she denies drinking for the past 2 days, drank heavy on 09/15/20, and reports that she has not been drinking much lately. tobacco use disorder accelerated htn, lopressor, cont home lisinopril tachycardia, tachypnea, SIRS, nos History of Present Illness History of Present Illness is a 64 year old female admit with chest pain, had worsenign pain over the past week, pain worse with exertion, but also with movement, she can press on her right and cause pain. Pain more severe today, she is having a lot of stress from her 15 yo grand- daughter who lives at home and has been out of school for a year due to COVID. Ms. Koch also feels short of breath, has no cough or dyspnea, or general myalgia. Patient has history of COVID-19 infection last year. 10/16/2020: Troponins remain negative x3. No acute events overnight, afebrile. Blood pressure remains slightly elevated, to be secondary to the anxiety hospitalization. Will discuss with consultants about further inpatient management. Vitals/I&O Vitals/I&O: Vital Signs Date Time Temp Pulse Resp B/P (MAP) Pulse Ox O2 Delivery O2 Flow Rate FiO2 09/19/20 03:10 97.9 94 18 161/97 (118) 98 Room Air 97.9 I & O 09/18/20 09/18/20 09/19/20 15:00 23:00 07:00 Intake Total 50 ml 100 ml Output Total 200 ml Balance 50 ml -100 ml Physical Exam General: Alert, Oriented X3, Cooperative, mild distress Heart: Regular rate Lungs: Clear Abdomen: Normal bowel sounds, Soft Extremities: No clubbing Skin: No rashes Labs Labs: Laboratory Tests Test 09/18/20 13:33 09/18/20 15:47 09/18/20 18:03 09/18/20 21:30 White Blood Count 4.8 x10^3/uL (4.0-11.0) Red Blood Count 3.62 x10^6/uL (3.50-5.40) Hemoglobin 11.3 g/dL (12.0-15.5) Hematocrit 33.3 % (36.0-47.0) Mean Corpuscular Volume 92 fL (79-100) Mean Corpuscular Hemoglobin 31 pg (25-35) Mean Corpuscular Hemoglobin Concent 34 g/dL (31-37) Red Cell Distribution Width 13.4 % (11.5-14.5) Platelet Count 241 x10^3/uL (140-400) Neutrophils (%) (Auto) 58 % (31-73) Lymphocytes (%) (Auto) 31 % (24-48) Monocytes (%) (Auto) 7 % (0-9) Eosinophils (%) (Auto) 3 % (0-3) Basophils (%) (Auto) 1 % (0-3) Neutrophils # (Auto) 2.8 x10^3/uL (1.8-7.7) Lymphocytes # (Auto) 1.5 x10^3/uL (1.0-4.8) Monocytes # (Auto) 0.4 x10^3/uL (0.0-1.1) Eosinophils # (Auto) 0.1 x10^3/uL (0.0-0.7) Basophils # (Auto) 0.1 x10^3/uL (0.0-0.2) Sodium Level 139 mmol/L (136-145) Potassium Level 5.1 mmol/L (3.5-5.1) Chloride Level 101 mmol/L (98-107) Carbon Dioxide Level 19 mmol/L (21-32) Anion Gap 19 (6-14) Blood Urea Nitrogen 15 mg/dL (7-20) Creatinine 1.3 mg/dL (0.6-1.0) Estimated GFR (Cockcroft-Gault) 50.1 BUN/Creatinine Ratio 12 (6-20) Glucose Level 60 mg/dL (70-99) Calcium Level 9.1 mg/dL (8.5-10.1) Magnesium Level 1.5 mg/dL (1.8-2.4) Total Bilirubin 0.4 mg/dL (0.2-1.0) Aspartate Amino Transf (AST/SGOT) 87 U/L (15-37) Alanine Aminotransferase (ALT/SGPT) 57 U/L (14-59) Alkaline Phosphatase 85 U/L (46-116) Troponin I Quantitative < 0.017 ng/mL (0.000-0.055) < 0.017 ng/mL (0.000-0.055) < 0.017 ng/mL (0.000-0.055) BV-Xkb-H-Type Natriuretic Peptide 252 pg/mL (0-124) Total Protein 7.9 g/dL (6.4-8.2) Albumin 4.1 g/dL (3.4-5.0) Albumin/Globulin Ratio 1.1 (1.0-1.7) Lipase 137 U/L (73-393) Urine Collection Type Unknown Urine Color Yellow Urine Clarity Clear Urine pH 6.0 (<5.0-8.0) Urine Specific [place] 1.010 (1.000-1.030) Urine Protein Negative mg/dL (NEG-TRACE) Urine Glucose (UA) Negative mg/dL (NEG) Urine Ketones (Stick) Negative mg/dL (NEG) Urine Blood Negative (NEG) Urine Nitrite Negative (NEG) Urine Bilirubin Negative (NEG) Urine Urobilinogen Dipstick 0.2 mg/dL (0.2 mg/dL) Urine Leukocyte Esterase Negative (NEG) Urine RBC 0 /HPF (0-2) Urine WBC Occ /HPF (0-4) Urine Squamous Epithelial Cells Mod /LPF Urine Bacteria 0 /HPF (0-FEW) Assessment and Plan Assessmemt and Plan Problems Medical Problems: (1) Chest pain Status: Acute (2) Hypertension Status: Acute Comment Review of Relevant I have reviewed the following items any (where applicable) has been applied. Medications: Current Medications Medications (Trade) Dose Ordered Sig/Declan Route PRN Reason Start Time Stop Time Status Last Admin Dose Admin Magnesium Sulfate 50 ml @ 25 mls/hr 1X ONCE IV 09/18/20 14:15 09/18/20 16:14 DC 09/18/20 14:35 Metoprolol Tartrate (Lopressor Vial) 5 mg 1X ONCE IVP 09/18/20 14:30 09/18/20 14:31 DC 09/18/20 14:34 Iohexol (Omnipaque 350 Mg/ml) 60 ml 1X ONCE IV 09/18/20 15:15 09/18/20 15:16 DC 09/18/20 15:36 Morphine Sulfate (Morphine Sulfate) 4 mg PRN Q2HR PRN IV PAIN 09/18/20 16:45 09/19/20 16:44 09/18/20 18:07 Metoprolol Tartrate (Lopressor Vial) 5 mg PRN Q6HRS PRN IVP HYPERTENSION 09/18/20 17:45 09/19/20 01:07 Metoprolol Tartrate (Lopressor) 50 mg BID PO 09/18/20 21:00 09/18/20 20:41 Thiamine Mononitrate (Vitamin B-1) 100 mg DAILY PO 09/18/20 19:30 09/18/20 20:46 Diazepam (Valium) 5 mg 1X ONCE PO 09/18/20 18:45 09/18/20 18:46 DC 09/18/20 20:41 Lidocaine (Lidoderm) 1 patch QHS TD 09/18/20 20:00 09/18/20 20:40 Nicotine (Nicoderm Cq 21mg) 1 patch DAILY TD 09/18/20 20:00 09/18/20 20:46 Lisinopril (Prinivil) 40 mg DAILY PO 09/18/20 20:00 09/18/20 20:46 Acetaminophen (Tylenol) 650 mg PRN Q6HRS PRN PO MILD PAIN / TEMP > 100.3'F 09/18/20 23:15 09/19/20 05:45 Justifications for Admission Other Justification JJ MATSON MD Sep 19, 2020 06:38
[2020-09-19 07:00] VITALS: BP 131/73
[2020-09-19 07:10] LABS: BASO # 0.1 x10^3/uL (0.0-0.2); BASO % 1 % (0-3); EOS # 0.2 x10^3/uL (0.0-0.7); EOS % 4 % (0-3); HEMATOCRIT 33.2 % (36.0-47.0); HEMOGLOBIN 11.2 g/dL (12.0-15.5); LYMPH # 1.4 x10^3/uL (1.0-4.8); LYMPH % 32 % (24-48); MEAN CORPUSCULAR HEMOGLOBIN 31 pg (25-35); MEAN CORPUSCULAR HGB CONC 34 g/dL (31-37); MEAN CORPUSCULAR VOLUME 92 fL (79-100); MONO # 0.4 x10^3/uL (0.0-1.1); MONO % 9 % (0-9); NEUT # 2.3 x10^3/uL (1.8-7.7); NEUT % 54 % (31-73); PLATELET COUNT 230 x10^3/uL (140-400); RED BLOOD COUNT 3.61 x10^6/uL (3.50-5.40); RED CELL DISTRIBUTION WIDTH 13.2 % (11.5-14.5); WHITE BLOOD COUNT 4.3 x10^3/uL (4.0-11.0)
[2020-09-19 07:30] LABS: ALBUMIN 3.8 g/dL (3.4-5.0); ALBUMIN/GLOBULIN RATIO 0.9 (1.0-1.7); CALCIUM 8.8 mg/dL (8.5-10.1); CREATININE 1.2 mg/dL (0.6-1.0); GFR 54.9; POTASSIUM 4.6 mmol/L (3.5-5.1); TOTAL BILIRUBIN 0.7 mg/dL (0.2-1.0); TOTAL PROTEIN 7.9 g/dL (6.4-8.2)
[2020-09-19 08:16] LABS: CHOLESTEROL/HDL RATIO 1.4
[2020-09-19] MEDS ORDERED: PATCH REMOVAL. MC SCH (09:00)
[2020-09-19] MEDS: traMADol 50 MG TABLET PO PRN ×2 (09:52→16:05)
[2020-09-19] MEDS: NICOTINE 21MG PATCH. TD SCH (09:52)
[2020-09-19] MEDS: THIAMINE 100 MG TABLET. PO SCH (10:59)
[2020-09-19] MEDS: METOPROLOL TART IMMED RELEASE 50 MG TABLET. PO SCH (10:59)
[2020-09-19] MEDS: LISINOPRIL 20 MG TABLET PO SCH (10:59)
[2020-09-19 11:00] VITALS: BP 164/76
--- NOTE | 2020-09-19 11:23 | NUR ---
SS following for discharge planning. SS reviewed pt chart and discussed with pt RN. Pt is from home with spouse and is currently on room air. ECHO ordered. Pt on CIWA protocol for ETOH. PAT team referral made for assessment and recommendations. Self pay. SS will continue to follow for discharge planning.
[2020-09-19] MEDS ORDERED: PERFLUTREN PROTEIN-A MICROSPHR 0.22 MG/ML 3 ML VIAL. IV ONE ×3 (11:56→12:00)
--- NOTE | 2020-09-19 13:13 | CARD ---
MR#: [id number] Date of Study: 09/19/2020 Ordering Physician: PAZ HERNÁNDEZ, Referring Physician: PAZ HERNÁNDEZ Tech: Eli Alanis [facility] APPROVED REPORT EXAM: Two-dimensional and M-mode echocardiogram with Doppler and color Doppler. Other Information Quality : GoodHR: 84bpm Rhythm : NSR INDICATION Chest Pain RISK FACTORS Hypertension 2D DIMENSIONS RVDd2.7 (2.9-3.5cm)Left Atrium(2D)3.1 (1.6-4.0cm) IVSd1.1 (0.7-1.1cm)Aortic Root(2D)2.9 (2.0-3.7cm) LVDd3.8 (3.9-5.9cm)LVOT Diameter2.1 (1.8-2.4cm) PWd1.1 (0.7-1.1cm)LVDs2.5 (2.5-4.0cm) FS (%) 33.9 %SV40.2 ml LVEF(%)63.5 (>50%) Aortic Valve AoV Peak Yasmani.107.7cm/sAoV VTI22.2cm AO Peak GR.4.6mmHgLVOT Peak Yasmani.75.4cm/s AO Mean GR.2mmHgAVA (VMAX)2.39cm2 Mitral Valve MV E Suatyxme81.4cm/sMV DECEL [id number] MV A Lglbpgie84.5cm/sE/A Ratio0.7 Pulmonary Valve PV Peak Fdxfifja23.8cm/s Tricuspid Valve TR P. Qbgjnnfj671wz/sTR Peak Gr.27mmHg Pulmonary Vein S1 Pcivpvaw19.8cm/sD2 Tnlbqhvf55.1cm/s PVa [id number] LEFT VENTRICLE The left ventricle is normal size. There is mild concentric left ventricular hypertrophy. The left ve ntricular systolic function is normal. Estmated ejection fraction 55-60%. There is normal LV segmenta l wall motion. Transmitral Doppler flow pattern is Grade I-abnormal relaxation pattern. No left ventr icle thrombus noted on this study. RIGHT VENTRICLE The right ventricle is normal size. There is normal right ventricular wall thickness. The right ventr icular systolic function is normal. ATRIA The left atrium size is normal. The right atrium size is normal. The interatrial septum is intact wit h no evidence for an atrial septal defect or patent foramen ovale as noted on 2-D or Doppler imaging. AORTIC VALVE The aortic valve is normal in structure and function. Doppler and Color Flow revealed no significant aortic regurgitation. There is no significant aortic valvular stenosis. MITRAL VALVE The mitral valve is normal in structure and function. There is no evidence of mitral valve prolapse. There is no mitral valve stenosis. Doppler and Color-flow revealed trace to mild mitral regurgitation . TRICUSPID VALVE The tricuspid valve is normal in structure and function. Doppler and Color Flow revealed mild tricusp id regurgitation. Estimated PAP 30 mmHg. GREAT VESSELS The aortic root is normal in size. The ascending aorta is normal in size. The IVC is normal in size a nd collapses >50% with inspiration. PERICARDIAL EFFUSION There is no evidence of significant pericardial effusion. Critical Notification Critical Value: No <Conclusion> The left ventricular systolic function is normal. Estmated ejection fraction 55-60%. There is normal LV segmental wall motion. Transmitral Doppler flow pattern is Grade I-abnormal relaxation pattern. Trace to mild mitral regurgitation. Mild tricuspid regurgitation. Estimated PAP 30 mmHg. There is no evidence of significant pericardial effusion. Signed by : Yovani Herrera, Electronically Approved : 09/19/2020 13:13:15
--- NOTE | 2020-09-19 13:20 | NUR ---
RN NOTE this RN took over care for this patient and agrees with previous RN's assessments. will continue to monitor.
--- NOTE | 2020-09-19 13:25 | PDOC2 ---
PAZ HERNÁNDEZ BRICK WHEELER 09/19/20 1325: CARDIAC CONSULT DATE OF CONSULT Date of Consult DATE: 09/19/20 TIME: 1050 REASON FOR CONSULT Reason for Consult: Chest pain, tachycardia REFERRING PHYSICIAN Referring Physician: Luis SOURCE Source: Chart review, Patient HISTORY OF PRESENT ILLNESS HISTORY OF PRESENT ILLNESS This is a pleasant 64 yo female admitted for complains of chest pain. This chest pain is right sided and reproducible with palpation. particularly to right axillary region to the scapular blade. This is more with positional changes and deep breathing. She has been having intractable coughin but also has some nasal congestion and smokes tobacco. Sometimes she coughs out light yellow sputum. No TAYLOR no n/v and no SOA. No fever or chills. No palpitations but has been noted with tachycardia with brief salvos of PSVT. No hx of CAD or arrhythmias but had a LHC in the past and was told of coronary vasopasm. No recreational drug use. No recent falls or injury. She drinks 1 beer daily and occasional have 3-4 shots of vodka. She has HTN and takes lisinopril. 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 No fever or chills, no anosmia or ageusia. PAST MEDICAL HISTORY Cardiovascular: HTN, Other (coronary vasopasm) Pulmonary: Other (covid-19 03/2020) CENTRAL NERVOUS SYSTEM: Other (no pertinent history) GI: No pertinent hx Heme/Onc: No pertinent hx Hepatobiliary: No pertinent hx Psych: No pertinent hx Musculoskeletal: Osteoarthritis Rheumatologic: No pertinent hx Infectious disease: No pertinent hx ENT: Other (cataract) Renal/: No pertinent hx Endocrine: No pertinent hx PAST SURGICAL HISTORY Past Surgical History: Total hip replacement (right) FAMILY HISTORY Family History: Coronary Artery Disease (mother) SOCIAL HISTORY Smoke: 1 pack per day ALCOHOL: occassional Drugs: None Lives: with Family CURRENT MEDICATIONS CURRENT MEDICATIONS Current Medications Medications (Trade) Dose Ordered Sig/Declan Route PRN Reason Start Time Stop Time Status Last Admin Dose Admin Magnesium Sulfate 50 ml @ 25 mls/hr 1X ONCE IV 09/18/20 14:15 09/18/20 16:14 DC 09/18/20 14:35 Metoprolol Tartrate (Lopressor Vial) 5 mg 1X ONCE IVP 09/18/20 14:30 09/18/20 14:31 DC 09/18/20 14:34 Iohexol (Omnipaque 350 Mg/ml) 60 ml 1X ONCE IV 09/18/20 15:15 09/18/20 15:16 DC 09/18/20 15:36 Morphine Sulfate (Morphine Sulfate) 4 mg PRN Q2HR PRN IV PAIN 09/18/20 16:45 09/19/20 16:44 09/18/20 18:07 Metoprolol Tartrate (Lopressor Vial) 5 mg PRN Q6HRS PRN IVP HYPERTENSION 09/18/20 17:45 09/19/20 01:07 Metoprolol Tartrate (Lopressor) 50 mg BID PO 09/18/20 21:00 09/19/20 10:59 Thiamine Mononitrate (Vitamin B-1) 100 mg DAILY PO 09/18/20 19:30 09/19/20 10:59 Diazepam (Valium) 5 mg 1X ONCE PO 09/18/20 18:45 09/18/20 18:46 DC 09/18/20 20:41 Lidocaine (Lidoderm) 1 patch QHS TD 09/18/20 20:00 09/18/20 20:40 Miscellaneous (Lidoderm Patch Removal) 1 ea DAILY MC 09/19/20 09:00 09/19/20 09:00 Nicotine (Nicoderm Cq 21mg) 1 patch DAILY TD 09/18/20 20:00 09/19/20 09:52 Lisinopril (Prinivil) 40 mg DAILY PO 09/18/20 20:00 09/19/20 10:59 Acetaminophen (Tylenol) 650 mg PRN Q6HRS PRN PO MILD PAIN / TEMP > 100.3'F 09/18/20 23:15 09/19/20 05:45 Tramadol HCl (Ultram) 50 mg PRN Q6HRS PRN PO PAIN 09/19/20 09:45 09/19/20 09:52 ALLERGIES ALLERGIES: Coded Allergies: aspirin (Verified Adverse Reaction, Intermediate, UPSETS STOMACH, 08/02/15) ROS Review of System 14 point ROS evaluated with pertinent positives noted per HPI PHYSICAL EXAM General: Alert, Oriented X3, Cooperative, No acute distress HEENT: Atraumatic, Mucous membr. moist/pink Lungs: Clear to auscultation, Normal air movement Heart: Regular rate (SR), Normal S1, Normal S2, No murmurs Abdomen: Soft, No tenderness Extremities: No cyanosis, No edema Skin: No breakdown, No significant lesion Neuro: Normal speech, Sensation intact Psych/Mental Status: Mental status NL, Mood NL MUSCULOSKELETAL: Osteoarthritic changes both hands VITALS/I&O VITALS/I&O: Vital Signs Date Time Temp Pulse Resp B/P (MAP) Pulse Ox O2 Delivery O2 Flow Rate FiO2 09/19/20 11:00 97.9 81 18 164/76 (105) 100 Room Air 97.9 I & O 09/18/20 09/18/20 09/19/20 15:00 23:00 07:00 Intake Total 50 ml 100 ml Output Total 200 ml Balance 50 ml -100 ml LABS Lab: Laboratory Tests Test 09/18/20 13:33 09/18/20 15:47 09/18/20 18:03 09/18/20 21:30 White Blood Count 4.8 x10^3/uL (4.0-11.0) Red Blood Count 3.62 x10^6/uL (3.50-5.40) Hemoglobin 11.3 g/dL (12.0-15.5) L Hematocrit 33.3 % (36.0-47.0) L Mean Corpuscular Volume 92 fL (79-100) Mean Corpuscular Hemoglobin 31 pg (25-35) Mean Corpuscular Hemoglobin Concent 34 g/dL (31-37) Red Cell Distribution Width 13.4 % (11.5-14.5) Platelet Count 241 x10^3/uL (140-400) Neutrophils (%) (Auto) 58 % (31-73) Lymphocytes (%) (Auto) 31 % (24-48) Monocytes (%) (Auto) 7 % (0-9) Eosinophils (%) (Auto) 3 % (0-3) Basophils (%) (Auto) 1 % (0-3) Neutrophils # (Auto) 2.8 x10^3/uL (1.8-7.7) Lymphocytes # (Auto) 1.5 x10^3/uL (1.0-4.8) Monocytes # (Auto) 0.4 x10^3/uL (0.0-1.1) Eosinophils # (Auto) 0.1 x10^3/uL (0.0-0.7) Basophils # (Auto) 0.1 x10^3/uL (0.0-0.2) Sodium Level 139 mmol/L (136-145) Potassium Level 5.1 mmol/L (3.5-5.1) Chloride Level 101 mmol/L (98-107) Carbon Dioxide Level 19 mmol/L (21-32) L Anion Gap 19 (6-14) H Blood Urea Nitrogen 15 mg/dL (7-20) Creatinine 1.3 mg/dL (0.6-1.0) H Estimated GFR (Cockcroft-Gault) 50.1 BUN/Creatinine Ratio 12 (6-20) Glucose Level 60 mg/dL (70-99) L Calcium Level 9.1 mg/dL (8.5-10.1) Magnesium Level 1.5 mg/dL (1.8-2.4) L Total Bilirubin 0.4 mg/dL (0.2-1.0) Aspartate Amino Transferase (AST) 87 U/L (15-37) H Alanine Aminotransferase (ALT) 57 U/L (14-59) Alkaline Phosphatase 85 U/L (46-116) Troponin I Quantitative < 0.017 ng/mL (0.000-0.055) < 0.017 ng/mL (0.000-0.055) < 0.017 ng/mL (0.000-0.055) SO-Gbh-F-Type Natriuretic Peptide 252 pg/mL (0-124) H Total Protein 7.9 g/dL (6.4-8.2) Albumin 4.1 g/dL (3.4-5.0) Albumin/Globulin Ratio 1.1 (1.0-1.7) Lipase 137 U/L (73-393) Urine Collection Type Unknown Urine Color Yellow Urine Clarity Clear Urine pH 6.0 (<5.0-8.0) Urine Specific [place] 1.010 (1.000-1.030) Urine Protein Negative mg/dL (NEG-TRACE) Urine Glucose (UA) Negative mg/dL (NEG) Urine Ketones (Stick) Negative mg/dL (NEG) Urine Blood Negative (NEG) Urine Nitrite Negative (NEG) Urine Bilirubin Negative (NEG) Urine Urobilinogen Dipstick 0.2 mg/dL (0.2 mg/dL) Urine Leukocyte Esterase Negative (NEG) Urine RBC 0 /HPF (0-2) Urine WBC Occ /HPF (0-4) Urine Squamous Epithelial Cells Mod /LPF Urine Bacteria 0 /HPF (0-FEW) Test 09/19/20 06:35 White Blood Count 4.3 x10^3/uL (4.0-11.0) Red Blood Count 3.61 x10^6/uL (3.50-5.40) Hemoglobin 11.2 g/dL (12.0-15.5) L Hematocrit 33.2 % (36.0-47.0) L Mean Corpuscular Volume 92 fL (79-100) Mean Corpuscular Hemoglobin 31 pg (25-35) Mean Corpuscular Hemoglobin Concent 34 g/dL (31-37) Red Cell Distribution Width 13.2 % (11.5-14.5) Platelet Count 230 x10^3/uL (140-400) Neutrophils (%) (Auto) 54 % (31-73) Lymphocytes (%) (Auto) 32 % (24-48) Monocytes (%) (Auto) 9 % (0-9) Eosinophils (%) (Auto) 4 % (0-3) H Basophils (%) (Auto) 1 % (0-3) Neutrophils # (Auto) 2.3 x10^3/uL (1.8-7.7) Lymphocytes # (Auto) 1.4 x10^3/uL (1.0-4.8) Monocytes # (Auto) 0.4 x10^3/uL (0.0-1.1) Eosinophils # (Auto) 0.2 x10^3/uL (0.0-0.7) Basophils # (Auto) 0.1 x10^3/uL (0.0-0.2) Sodium Level 131 mmol/L (136-145) L Potassium Level 4.6 mmol/L (3.5-5.1) Chloride Level 97 mmol/L (98-107) L Carbon Dioxide Level 22 mmol/L (21-32) Anion Gap 12 (6-14) Blood Urea Nitrogen 16 mg/dL (7-20) Creatinine 1.2 mg/dL (0.6-1.0) H Estimated GFR (Cockcroft-Gault) 54.9 BUN/Creatinine Ratio 13 (6-20) Glucose Level 81 mg/dL (70-99) Calcium Level 8.8 mg/dL (8.5-10.1) Total Bilirubin 0.7 mg/dL (0.2-1.0) Aspartate Amino Transferase (AST) 56 U/L (15-37) H Alanine Aminotransferase (ALT) 48 U/L (14-59) Alkaline Phosphatase 80 U/L (46-116) Total Protein 7.9 g/dL (6.4-8.2) Albumin 3.8 g/dL (3.4-5.0) Albumin/Globulin Ratio 0.9 (1.0-1.7) L Triglycerides Level 109 mg/dL (0-150) Cholesterol Level 280 mg/dL (0-200) H LDL Cholesterol, Calculated 63 mg/dL (0-100) VLDL Cholesterol, Calculated 22 mg/dL (0-40) Non-HDL Cholesterol Calculated 85 mg/dL (0-129) HDL Cholesterol 195 mg/dL (40-60) H Cholesterol/HDL Ratio 1.4 Thyroid Stimulating Hormone (TSH) 1.450 uIU/mL (0.358-3.74) Laboratory Tests 09/18/20 13:33 09/19/20 06:35 Laboratory Tests 09/18/20 13:33 09/19/20 06:35 ASSESSMENT/PLAN ASSESSMENT/PLAN 1. AECOPD with tobaccoism per PCP 2. URI with likely postnasal drip syndrome 3. Atypical chest pain: pleuritic, noncardiac 4. PSVT: brief salvos 5. Mild BERNIE 6. Suspect alcoholism 7. 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 Hyponatremia/hypomagnesemia 9. HTN urgency: possibly from withdrawal and pain? Recommendations 1. Lidoderm. Ciwa protocol per PCP 2. Will obtain baseline TTE 3. Smoking cessation. UDS. Diet modification 4. Continue metoprolol and lisinopril. Replace Mg MARIPOSA BASS MD 09/20/20 0646: CARDIAC CONSULT ASSESSMENT/PLAN ASSESSMENT/PLAN The patient was seen and interviewed as well as examined at the bedside. The chart was reviewed. The case was discussed. Agree with the plan of care. PAZ HERNÁNDEZ APRN Sep 19, 2020 13:25 MARIPOSA BASS MD Sep 20, 2020 06:46
[2020-09-19 15:00] VITALS: BP 162/95
[2020-09-19] MEDS ORDERED: METO50TA6 PO (18:22)
[2020-09-19] MEDS ORDERED: TRAM50TA PO (18:22)
--- NOTE | 2020-09-19 18:42 | NUR ---
Discharge Note: BELL PINEDA Discharge instructions and discharge home medications reviewed with Patient and a copy given. All questions have been answered and understanding verbalized. The following instructions and handouts were given: HTN, hypomagnesium, CP, tramadol Discontinued lines and drains: Peripheral IV intact. Patient discharged to Home or Self Care with Family Member via Wheelchair
--- NOTE | 2020-09-23 22:01 | PDOC3 ---
Discharge Summary Visit Information Date of Admission: Sep 18, 2020 Date of Discharge: Sep 19, 2020 Final Diagnosis Problems Medical Problems: (1) Chest pain Status: Acute (2) Hypertension Status: Acute Brief Hospital Course Allergies Allergies Coded Allergies Type Severity Reaction Last Updated Verified aspirin Adverse Reaction Intermediate UPSETS STOMACH 08/02/15 Yes Brief Hospital Course Ms. Koch is a 64 old female who presented with atypical chest pain. Consult placed to cardiology. Troponins <0.017 x 3. Echocardiogram was obtained showing normal LV systolic function, EF 55-60%, grade-1 diastolic dysfunction, and estimated PAP 30 mmHg. She was recommended smoking cessation and close PCP follow-up. Stable for discharge. Discharge Information Condition at Discharge: Stable Follow Up: Weeks Disposition/Orders: D/C to Home Scheduled Lisinopril (Lisinopril) 40 Mg Tablet, 1 TAB PO DAILY for , #30 Ref 5 (Reported) Entered as Reported by: JANEL MORRIS RN on 09/18/201748 Last Action: Continued on 09/18/201858 by DAPHNIE ROBLES Metoprolol Tartrate (Metoprolol Tartrate) 50 Mg Tablet, 50 MG PO BID for SVT/Palpitations for 30 Days, #60 Ref 2 Prescribed by: ANDREA KUMAR MD on 09/19/201821 Scheduled PRN Tramadol Hcl (Tramadol Hcl) 50 Mg Tablet, 50 MG PO PRN Q6HRS PRN for PAIN for 6 Days, #15 Prescribed by: ANDREA KUMAR MD on 09/19/201821 Justicifation of Admission Dx: Justifications for Admission: Justification of Admission Dx: Yes Angina: Symp at Rest JJ MATSON MD Sep 23, 2020 22:01
== END 2020-09-19 18:43 | disposition home or self-care (01) | DRG 191 ==
LOC: ER 12:58 → 2 SOUTH 16:55
PROVIDERS: ADMIT Internal Medicine; ATTEND Internal Medicine
DX: J44.1 Chronic obstructive pulmonary disease with (acute) exacerbation (principal); E87.1 Hypo-osmolality and hyponatremia; N17.9 Acute kidney failure, unspecified; R65.10 Systemic inflammatory response syndrome (SIRS) of non-infectious origin without acute organ dysfunction; I47.1 Supraventricular tachycardia; R07.89 Other chest pain; E83.42 Hypomagnesemia; F17.210 Nicotine dependence, cigarettes, uncomplicated; F41.9 Anxiety disorder, unspecified; I10 Essential (primary) hypertension; I25.10 Atherosclerotic heart disease of native coronary artery without angina pectoris; J06.9 Acute upper respiratory infection, unspecified; Z86.16 Personal history of COVID-19; Z96.641 Presence of right artificial hip joint; F10.10 Alcohol abuse, uncomplicated; M19.90 Unspecified osteoarthritis, unspecified site; R09.82 Postnasal drip; I16.0 Hypertensive urgency; I25.2 Old myocardial infarction; Z82.49 Family history of ischemic heart disease and other diseases of the circulatory system; Z98.51 Tubal ligation status
CPT/HCPCS: 36415; 71045; 71275; 80053; 80061; 81001; 83690; 83735; 83880; 84443; 84484; 85025; 93005; 93306; 96365; 96366; 96375; 99285; J2270; J3475; J3490; Q9956; Q9967; G0378

== ENCOUNTER 2021-05-27 10:55 | Emergency (ER) | payer SELFPAY ==
[~2021-05-27] VITALS: Ht 162.6 cm; Wt 57.0 kg
[~2021-05-27 10:55] MED LIST changes: +LISI-130 PO; -LISI-517 PO; +LISI5TAB15 PO; +METO50TA6 PO
--- NOTE | 2021-05-27 11:27 | PHYS DOC ---
Past Medical History Past Medical History: Hypertension, [place] Additional Past Medical Histor: "I've passed out before" [place] 2008, Past Surgical History: Tubal ligation Smoking Status: Current Every Day Smoker Alcohol Use: Occasionally Drug Use: None General Adult EDM: Chief Complaint: COUGH HPI: HPI: Patient is a 65-year-old female presents to the emergency department complaining of cough and congestion for the past 4 days. Patient denies chest pains. Patient denies shortness of breath or increased work of breathing however states her cough symptoms increase at night, reports coughing up yellow sputum moderate amount. Denies nausea, vomiting, diarrhea, abdominal pains. Patient denies fever or chills. Patient reports she has been vaccinated for the COVID-19 virus, has received her flu vaccination earlier this month. Patient denies allergies to medications, states she takes lisinopril for high blood pressure, states seeks primary care at [facility]. Patient reports she is a cigarette smoker and is trying to quit. Patient denies other physical complaints or physical concerns per Review of Systems: Review of Systems: 14 body systems of review of systems have been reviewed. See HPI for pertinent positives and negative responses, otherwise all other systems are negative, nonpertinent or noncontributory. Constitutional: Negative except as outlined in HPI above. Skin: Negative except as outlined in HPI above. Eyes: Negative except as outlined in HPI above. HENT: Negative except as outlined in HPI above. Respiratory: Negative except as outlined in HPI above. Cardiovascular: Negative except as outlined in HPI above. GI: Negative except as outlined in HPI above. : Negative except as outlined in HPI above. Musculoskeletal: Negative except as outlined in HPI above. Integument: Negative except as outlined in HPI above. Neurologic: Negative except as outlined in HPI above. Endocrine: Negative except as outlined in HPI above. Lymphatic: Negative except as outlined in HPI above. Psychiatric: Negative except as outlined in HPI above. Heart Score: C/O Chest Pain: No Risk Factors: Risk Factors: DM, Current or recent (<one month) smoker, HTN, HLP, family history of CAD, obesity. Risk Scores: Score 0 - 3: 2.5% MACE over next 6 weeks - Discharge Home Score 4 - 6: 20.3% MACE over next 6 weeks - Admit for Clinical Observation Score 7 - 10: 72.7% MACE over next 6 weeks - Early Invasive Strategies Current Medications: Current Medications Medications (Trade) Dose Ordered Sig/Declan Start Time Stop Time Status Last Admin Dose Admin Albuterol/ Ipratropium (Duoneb) 3 ml 1X ONCE 05/27/21 11:30 05/27/21 11:31 UNV Benzonatate (Tessalon Perle) 100 mg 1X ONCE 05/27/21 11:30 05/27/21 11:31 UNV Sodium Chloride 1,000 ml @ 1,000 mls/hr 1X ONCE 05/27/21 11:30 05/27/21 12:29 UNV Allergies: Allergies: Allergies Coded Allergies Type Severity Reaction Last Updated Verified aspirin Adverse Reaction Intermediate UPSETS STOMACH 08/02/15 Yes Physical Exam: PE: Constitutional: Well developed, well nourished, no acute distress, non-toxic appearance. 65-year-old female coughing during physical exam otherwise in no apparent distress. HENT: Normocephalic, atraumatic. Oropharynx moist, pink, no deep tissue infectious process appreciated, no lymphadenopathy of the head or neck appreciated, bilateral TMs within normal limits intact. Eyes: Conjunctiva normal, no discharge. Neck: Normal range of motion, no stridor. No nuchal rigidity, no meningismus signs. Cardiovascular: No cyanosis appreciated, distal cap refill less than 2 seconds. Lungs & Thorax: Patient is in no respiratory distress, no audible adventitious lung sounds appreciated. Lung sounds are clear to auscultate all lung murphy however does have coarse cough when cough is elicited. Abdomen: Nontender, no abnormalities noted. Skin: Warm, dry, no erythema, no rash. Back: No tenderness, no deformities. Extremities: No tenderness, no cyanosis, no clubbing, ROM intact, no edema. Neurologic: Alert and oriented X 3, normal motor function, normal sensory function, no focal deficits noted. Psychologic: Affect normal, judgement normal, mood normal. Current Patient Data: Vital Signs: Vital Signs Date Time Temp Pulse Resp B/P (MAP) Pulse Ox O2 Delivery O2 Flow Rate FiO2 05/27/21 11:08 98.7 103 20 175/80 (111) 99 Room Air 98.7 EKG: EKG: EKG performed at 1229 by ED nursing staff shows normal sinus rhythm heart rate 99 bpm, MT interval 0.170, QT 0.442, no acute STEMI, no ACS, no acute ischemia appreciated, EKG interpreted by ED attending physician Dr. Miller. Radiology/Procedures: Radiology/Procedures: PATIENT: LAURA PINEDA ACCOUNT: [id number] : 1955 LOCATION: ER AGE: 65 SEX: F EXAM STATUS: REG ER ORD. PHYSICIAN: CHRISTOPHER MARTINEZ APRN REASON: Cough congestion PROCEDURE: CHEST AP ONLY INDICATION: Reason: Cough congestion / Spl. Instructions: / History: COMPARISON: September 18, 2020 FINDINGS: Single view of chest obtained. Cardiac silhouette is similar to prior. Mild interstitial prominence bilaterally is again seen without a definite new region of consolidation. Degenerative changes of shoulders and spine IMPRESSION: * Interstitial prominence is again seen bilaterally and can be from emphysema. No new region of consolidation. Electronically signed by: Barney Nicholson MD (05/27/2021 12:00 PM) [id number] Course & Med Decision Making: Course & Med Decision Making Pertinent Labs and Imaging studies reviewed. (See chart for details) 65-year-old female, vital signs reviewed, presents emergency department concerning cough and congestion for the past 4 days. Physical examination concerning for viral bronchitis versus other respiratory process, will order CBC, BMP, 1 L normal saline for slight tachycardia of 103 during physical examination, Tessalon Perles for cough, chest x-ray, COVID-19 testing. COVID-19 unlikely, patient has been vaccinated and denies exposure to known COVID-19 persons. Patient is a cigarette smoker, will order DuoNeb treatment. Chest x-ray consistent with emphysema, COVID-19 testing negative, labs unremarkable, EKG unremarkable, upon reevaluation of the patient, patient reports the breathing treatment helped, patient was given p.o. prednisone pending completion of labs. Patient is a cigarette smoker, discussed smoking cessation, discussed with patient will discharge to home with diagnosis of bronchitis, will start on azithromycin regimen, p.o. prednisone, strict follow- up with primary care this week, return to ER precautions or concerns. Patient gave verbal understanding of and is amenable to ED discharge planning Discussed with the patient all findings and diagnostic testing as well as the need to follow-up with their primary care provider for further evaluation and treatment or return to the ED if any new or worsening symptoms. Strict return precautions were also discussed at length, the patient voiced understanding and agreement with the discharge planning. The patient was nontoxic in appearance, in no apparent distress, and hemodynamically stable at the time of disposition. [place]on Disclaimer: Nicolas Disclaimer: This electronic medical record was generated, in whole or in part, using a voice recognition dictation system. Departure Departure Impression: Primary Impression: Bronchitis Additional Impressions: History of emphysema Cigarette smoker Disposition: HOME / SELF CARE / HOMELESS Condition: GOOD Referrals: LAITH HILLMAN JR, MD (PCP) Patient Instructions: Acute Bronchitis, Smoking Cessation Additional Instructions: You were seen today in the emergency department for cough congestion for the past 4 days. Your chest x-ray did not show any concerning findings for pneumonia, your Covid testing was negative, your lab work did not show signs of infectious process however as we discussed, I have started you on a antibiotic related to your history of emphysema and cigarette smoking, your treated today with an oral steroid prednisone, I am prescribing you dosing for the next 5 days, we discussed cigarette smoking cessation, please consider stopping smoking cigarettes. Please follow-up with your primary care physician this week for reevaluation of your symptoms. Please return to the emergency department for worsening symptoms or other concerns. Thank you for visiting our Emergency Department. It was a pleasure taking care of you today in the emergency department and we appreciate you trusting us with your care. If any additional problems come up don't hesitate to return to visit us. Please follow up with your primary care provider so they can plan additional care if needed and know about the problem that you had. If symptoms worsen come back to the Emergency Department. Any concerning symptoms that start such as chest pain, shortness of air, weakness or numbness on one side of the body, running high fevers or any other concerning symptoms return to the ER. EMERGENCY DEPARTMENT GENERAL DISCHARGE INSTRUCTIONS Thank you for coming to [facility] Emergency Department (ED) today and trusting us with you care. We trust that you had a positive experience in our Emergency Department. If you wish to speak to the department management, you may call the Director at [phone]. YOUR FOLLOW UP INSTRUCTIONS ARE FOLLOWS: 1. Do you have a private Doctor? If you do not have a private doctor, please ask for a resource list of physicians or clinics that may be able to assist you with follow up care. 2. The Emergency Physicain has interpreted your x-rays. The X-Ray specialist will also review them. If there is a change in the findings, you will be notified in 48 hours when at all possible. 3. A lab test or culture has been done, your results will be reviewed and you will be notified if you need a change in treatment. ADDITIONAL INSTRUCTIONS AND INFORMATION: 1. Your care today has been supervised by a physician who is specially trained in emergency care. Many problems require more than one evaluation for a complete diagnosis and treatment. We recommend that you schedule your follow up appointment as recommended to ensure complete treatment of you illness or injury. If you are unable to obtain follow up care and continue to have a problem, or if your condition worsens, we recommend that you return to the ED. 2. We are not able to safely determine your condition over the phone nor are we able to give sound medical advice over the phone. For these safety reasons, if you call for medical advice we will ask you to come to the ED for further evaluation. 3. If you have any questions regarding these discharge instructions please call the ED at [phone]. SAFETY INFORMATION: In the interest of safety, wellness, and injury prevention; we encourage you to wear your sealbelt, if you smoke; quite smoking, and we encourage family to use a protective helmet for bicycling and other sporting events that present an increased risk for head injury. IF YOUR SYMPTOMS WORSEN OR NEW SYMPTOMS DEVELOP, OR YOU HAVE CONCERNS ABOUT YOUR CONDITION; OR IF YOUR CONDITION WORSENS WHILE YOU ARE WAITING FOR YOUR FOLLOW UP APPOINTMENT; EITHER CONTACT YOUR PRIMARY CARE DOCTOR, THE PHYSICIAN WHOSE NAME AND NUMBER YOU WERE GIVEN, OR RETURN TO THE ED IMMEDIATELY. Scripts Azithromycin (ZITHROMAX) 250 Mg Tablet 1 PKG PO UD, #6 TAB 0 Refills Prov: CHRISTOPHER MARTINEZ ENGINEERING SYSTEMS ANALYST 05/27/21 Prednisone (PREDNISONE) 50 Mg Tablet 1 TAB PO DAILY, #5 TAB 0 Refills Prov: CHRISTOPHER MARTINEZ ENGINEERING SYSTEMS ANALYST 05/27/21 CHRISTOPHER MARTINEZ APRN May 27, 2021 11:27
[2021-05-27] MEDS ORDERED: IPRATRPIUM/ALBUTEROL 0.5/2.5MG 3 ML NEBU. NEB ONE (11:30)
[2021-05-27] MEDS ORDERED: BENZONATATE 100 MG CAPSULE. PO ONE (11:30)
[2021-05-27] MEDS ORDERED: IV NORMAL SALINE 1000ML BAG 1,000 ML IV ONE (11:30)
--- NOTE | 2021-05-27 12:03 | RAD ---
INDICATION: Reason: Cough congestion / Spl. Instructions: / History: COMPARISON: September 18, 2020 FINDINGS: Single view of chest obtained. Cardiac silhouette is similar to prior. Mild interstitial prominence bilaterally is again seen without a definite new region of consolidation . Degenerative changes of shoulders and spine IMPRESSION: * Interstitial prominence is again seen bilaterally and can be from emphysema. No new region of cons olidation. Electronically signed by: Barney Nicholson MD (05/27/2021 12:00 PM) [id number]
[2021-05-27] MEDS ORDERED: predniSONE 20 MG TABLET PO ONE (12:15)
[2021-05-27 12:19] LABS: BASO % 1 % (0-3); EOS # 0.1 x10^3/uL (0.0-0.7); EOS % 2 % (0-3); HEMATOCRIT 29.1 % (36.0-47.0); HEMOGLOBIN 9.8 g/dL (12.0-15.5); LYMPH # 0.9 x10^3/uL (1.0-4.8); LYMPH % 22 % (24-48); MEAN CORPUSCULAR HEMOGLOBIN 30 pg (25-35); MEAN CORPUSCULAR HGB CONC 34 g/dL (31-37); MEAN CORPUSCULAR VOLUME 89 fL (79-100); MONO # 0.3 x10^3/uL (0.0-1.1); MONO % 6 % (0-9); NEUT % 70 % (31-73); PLATELET COUNT 274 x10^3/uL (140-400); RED BLOOD COUNT 3.25 x10^6/uL (3.50-5.40); RED CELL DISTRIBUTION WIDTH 13.8 % (11.5-14.5); WHITE BLOOD COUNT 4.3 x10^3/uL (4.0-11.0)
[2021-05-27 12:22] LABS: CALCIUM 8.7 mg/dL (8.5-10.1); CREATININE 1.1 mg/dL (0.6-1.0); GFR 60.5
[2021-05-27 13:15] VITALS: BP 150/71
[2021-05-27] MEDS ORDERED: AZIT250T PO (13:43)
[2021-05-27] MEDS ORDERED: PRED50TA PO (13:43)
--- NOTE | 2021-05-29 16:05 | EKG ---
[facility] [address] [place] [address] Test Date: 2021-05-27 Test Time: 12:29:40 Pat Name: LAURA PINEDA Department: Room: Gender: F Car Dealer: : 1955 Requested By: CHRISTOPHER MARTINEZ Order Number: [id number] Reading MD: Abel Ramirez MD Measurements Intervals Mears Rate: 99 P: 121 IA: 170 QRS: 127 QRSD: 84 T: 121 QT: 340 QTc: 442 Interpretive Statements PROBABLE SINUS TACHYCARDIA ABNORMAL RIGHT AXIS DEVIATION QRS(T) CONTOUR ABNORMALITY CONSISTENT WITH HIGH LATERAL INFARCT AGE UNDETERMINED ABNORMAL ECG Electronically Signed On 06-02-2021 14:15:11 ENVIRONMENTAL PLANNING ENGINEER by Abel Ramirez MD
--- NOTE | 2021-05-30 15:42 | NUR ---
IP: Informed pt of negative covid test. Pt verbalized understanding.
== END 2021-05-27 13:57 | disposition home or self-care (01) ==
LOC: ER 10:55
DX: J40 Bronchitis, not specified as acute or chronic (principal); Z20.822 Contact with and (suspected) exposure to COVID-19; F17.210 Nicotine dependence, cigarettes, uncomplicated; I10 Essential (primary) hypertension; I25.2 Old myocardial infarction
CPT/HCPCS: 36415; 71045; 80048; 82553; 83880; 84484; 85025; 87426; 94640; 96360; 99285; J7030; J7512; U0003; U0005; 93005

== ENCOUNTER 2021-07-15 13:15 | Emergency (ER) | payer SELFPAY ==
[~2021-07-15] VITALS: Ht 162.6 cm; Wt 58.0 kg
[~2021-07-15 13:15] MED LIST changes: +AZIT250T PO; +PRED50TA PO
[2021-07-15 13:48] VITALS: BP 190/111
--- NOTE | 2021-07-15 15:16 | RAD ---
EXAM: XR FOOT_RIGHT 3 VIEWS 07/15/2021 2:21 PM CLINICAL INDICATION: Injury, pain COMPARISON: None TECHNIQUE: 3 views of the right foot FINDINGS: The bones are diffusely demineralized. There is a suspected nondisplaced fracture of the t hird proximal phalanx. Alignment is normal. Joint spaces are maintained. No focal soft tissue abnorma lity. IMPRESSION: Suspect nondisplaced fracture of the third proximal phalanx. Electronically signed by: Yakelin Shields MD (07/15/2021 3:13 PM) [id number]
--- NOTE | 2021-07-15 15:44 | PHYS DOC ---
Past Medical History Past Medical History: Hypertension, [place] Additional Past Medical Histor: "I've passed out before" [place] 2008, Past Surgical History: Tubal ligation Smoking Status: Current Every Day Smoker Alcohol Use: Occasionally Drug Use: None General Adult EDM: Chief Complaint: FOOT INJURY PAIN HPI: HPI: Patient is a 65 year old female who presents after dropping frozen meat on her right foot 1 week ago. Range of motion intact. Patient able to ambulate. Pain is worsened with ambulation. History of hypertension. Review of Systems: Review of Systems: ROS At least 10 ROS systems have been reviewed and are negative except as documented in the HPI. General: Negative except as outlined in HPI above. Skin: Negative except as outlined in HPI above. HEENT: Negative except as outlined in HPI above. Neck: Negative except as outlined in HPI above. Respiratory: Negative except as outlined in HPI above.. Cardiovascular: Negative except as outlined in HPI above. Abdomen: Negative except as outlined in HPI above. : Negative except as outlined in HPI above. Back/MSK: Negative except as outlined in HPI above. Neuro: Negative except as outlined in HPI above. Psych: Negative except as outlined in HPI above. Heart Score: C/O Chest Pain: No Risk Factors: Risk Factors: DM, Current or recent (<one month) smoker, HTN, HLP, family history of CAD, obesity. Risk Scores: Score 0 - 3: 2.5% MACE over next 6 weeks - Discharge Home Score 4 - 6: 20.3% MACE over next 6 weeks - Admit for Clinical Observation Score 7 - 10: 72.7% MACE over next 6 weeks - Early Invasive Strategies Allergies: Allergies: Allergies Coded Allergies Type Severity Reaction Last Updated Verified aspirin Adverse Reaction Intermediate UPSETS STOMACH 08/02/15 Yes Physical Exam: PE: Constitutional: Well developed, well nourished, no acute distress, non-toxic appearance. [] HENT: Normocephalic, atraumatic, bilateral external ears normal, oropharynx moist, no oral exudates, nose normal. [] Eyes: PERRLA, EOMI, conjunctiva normal, no discharge. [] Neck: Normal range of motion, no tenderness, supple, no stridor. [] Cardiovascular:Heart rate regular rhythm, no murmur [] Lungs & Thorax: Bilateral breath sounds clear to auscultation [] Abdomen: Bowel sounds normal, soft, no tenderness, no masses, no pulsatile masses. [] Skin: Warm, dry, no erythema, no rash. [] Back: No tenderness, no CVA tenderness. [] Extremities: Right foot tenderness, no cyanosis, no clubbing, ROM intact, no edema. [] Neurologic: Alert and oriented X 3, normal motor function, normal sensory function, no focal deficits noted. [] Psychologic: Affect normal, judgement normal, mood normal. [] Current Patient Data: Vital Signs: Vital Signs Date Time Temp Pulse Resp B/P (MAP) Pulse Ox O2 Delivery O2 Flow Rate FiO2 07/15/21 13:48 98.1 108 12 190/111 (137) 98 Room Air 98.1 EKG: EKG: [] Radiology/Procedures: Radiology/Procedures: []EXAM: XR FOOT_RIGHT 3 VIEWS 07/15/2021 2:21 PM CLINICAL INDICATION: Injury, pain COMPARISON: None TECHNIQUE: 3 views of the right foot FINDINGS: The bones are diffusely demineralized. There is a suspected nondisplaced fracture of the third proximal phalanx. Alignment is normal. Joint spaces are maintained. No focal soft tissue abnormality. IMPRESSION: Suspect nondisplaced fracture of the third proximal phalanx. Electronically signed by: Yakelin Shields MD (07/15/2021 3:13 PM) [id number] Course & Med Decision Making: Course & Med Decision Making Pertinent Labs and Imaging studies reviewed. (See chart for details) 65-year-old female presents with right foot pain after dropping up bag of frozen food on her foot. Patient is still able to ambulate. Range of motion intact. No swelling noted. Pedal pulses intact. X-ray shows nondisplaced fracture of the third proximal phalanx. Toes were justina taped. Educated on RICE. Dragon Disclaimer: Dragon Disclaimer: This electronic medical record was generated, in whole or in part, using a voice recognition dictation system. Departure Departure Impression: Primary Impression: Toe fracture, right Qualified Codes: S92.504A - Nondisplaced unspecified fracture of right lesser toe(s), initial encounter for closed fracture Disposition: HOME / SELF CARE / HOMELESS Condition: STABLE Referrals: LAITH HILLMAN JR, MD (PCP) Patient Instructions: RICE - Routine Care for Injuries, [id number], Toe Fracture, [id number] Additional Instructions: You were seen in the emergency room after injuring your right toe. X-ray shows a nondisplaced, fracture on the right foot. Rest, use ice to the injured area, elevate to help with pain and swelling. Ibuprofen at home for discomfort. Return to the emergency room if you have worsening symptoms or concerns. EMERGENCY DEPARTMENT GENERAL DISCHARGE INSTRUCTIONS Thank you for coming to [facility] Emergency Department (ED) today and trusting us with you care. We trust that you had a positive experience in our Emergency Department. If you wish to speak to the department management, you may call the Director at [phone]. YOUR FOLLOW UP INSTRUCTIONS ARE FOLLOWS: 1. Do you have a private Doctor? If you do not have a private doctor, please ask for a resource list of physicians or clinics that may be able to assist you with follow up care. 2. The Emergency Physicain has interpreted your x-rays. The X-Ray specialist will also review them. If there is a change in the findings, you will be notified in 48 hours when at all possible. 3. A lab test or culture has been done, your results will be reviewed and you will be notified if you need a change in treatment. ADDITIONAL INSTRUCTIONS AND INFORMATION: 1. Your care today has been supervised by a physician who is specially trained in emergency care. Many problems require more than one evaluation for a complete diagnosis and treatment. We recommend that you schedule your follow up appointment as recommended to ensure complete treatment of you illness or injury. If you are unable to obtain follow up care and continue to have a problem, or if your condition worsens, we recommend that you return to the ED. 2. We are not able to safely determine your condition over the phone nor are we able to give sound medical advice over the phone. For these safety reasons, if you call for medical advice we will ask you to come to the ED for further evaluation. 3. If you have any questions regarding these discharge instructions please call the ED at [phone]. SAFETY INFORMATION: In the interest of safety, wellness, and injury prevention; we encourage you to wear your sealbelt, if you smoke; quite smoking, and we encourage family to use a protective helmet for bicycling and other sporting events that present an increased risk for head injury. IF YOUR SYMPTOMS WORSEN OR NEW SYMPTOMS DEVELOP, OR YOU HAVE CONCERNS ABOUT YOUR CONDITION; OR IF YOUR CONDITION WORSENS WHILE YOU ARE WAITING FOR YOUR FOLLOW UP APPOINTMENT; EITHER CONTACT YOUR PRIMARY CARE DOCTOR, THE PHYSICIAN WHOSE NAME AND NUMBER YOU WERE GIVEN, OR RETURN TO THE ED IMMEDIATELY. RYAN KUMAR APRN Jul 15, 2021 15:44
== END 2021-07-15 16:49 | disposition home or self-care (01) ==
LOC: ER 13:15
DX: S92.504A Nondisplaced unspecified fracture of right lesser toe(s), initial encounter for closed fracture (principal); I10 Essential (primary) hypertension; I25.2 Old myocardial infarction; F17.200 Nicotine dependence, unspecified, uncomplicated; Z88.6 Allergy status to analgesic agent; X58.XXXA Exposure to other specified factors, initial encounter; Y93.89 Activity, other specified; Y92.89 Other specified places as the place of occurrence of the external cause; Y99.8 Other external cause status
CPT/HCPCS: 29125; 73630; 99283

== ENCOUNTER 2021-12-04 11:14 | Emergency (ER) | payer MEDICARE, MEDICAID ==
[~2021-12-04] VITALS: Ht 162.6 cm; Wt 54.0 kg
[2021-12-04 12:36] LABS: BASO % 1 % (0-3); EOS # 0.1 x10^3/uL (0.0-0.7); EOS % 2 % (0-3); HEMATOCRIT 32.1 % (36.0-47.0); HEMOGLOBIN 10.8 g/dL (12.0-15.5); LYMPH # 1.1 x10^3/uL (1.0-4.8); LYMPH % 24 % (24-48); MEAN CORPUSCULAR HEMOGLOBIN 30 pg (25-35); MEAN CORPUSCULAR HGB CONC 34 g/dL (31-37); MEAN CORPUSCULAR VOLUME 89 fL (79-100); MONO # 0.4 x10^3/uL (0.0-1.1); MONO % 10 % (0-9); NEUT # 2.9 x10^3/uL (1.8-7.7); NEUT % 64 % (31-73); PLATELET COUNT 280 x10^3/uL (140-400); RED BLOOD COUNT 3.62 x10^6/uL (3.50-5.40); RED CELL DISTRIBUTION WIDTH 14.8 % (11.5-14.5); WHITE BLOOD COUNT 4.5 x10^3/uL (4.0-11.0)
--- NOTE | 2021-12-04 12:40 | PHYS DOC ---
Past Medical History Past Medical History: COPD, Hypertension, [place] Additional Past Medical Histor: "I've passed out before" [place] 2008, Past Surgical History: Tubal ligation Smoking Status: Current Every Day Smoker Alcohol Use: Occasionally Drug Use: None General Adult EDM: Chief Complaint: CONSTIPATION HPI: HPI: Patient is a 66-year-old female who presents today with abdominal pain. Patient states she started having abdominal pain approximately 2 days ago and noted that she had not had any bowel movements in last couple of days she took a stimulant, and states she had a bowel movement this morning but her abdominal pain still continues. Patient denies nausea vomiting, chest pain, shortness of breath, or fever. Patient states she has a past medical history of hypertension, COPD and IA. Patient states she sees [facility] for her medical management of her medical concerns. Review of Systems: Review of Systems: Constitutional: Denies fever or chills. [] Eyes: Denies change in visual acuity. [] HENT: Denies nasal congestion or sore throat. [] Respiratory: Denies cough or shortness of breath. [] Cardiovascular: Denies chest pain or edema. [] GI: abdominal pain, denies nausea, vomiting, bloody stools or diarrhea. [] : Denies dysuria. [] Musculoskeletal: Denies back pain or joint pain. [] Integument: Denies rash. [] Neurologic: Denies headache, focal weakness or sensory changes. [] Endocrine: Denies polyuria or polydipsia. [] Lymphatic: Denies swollen glands. [] Psychiatric: Denies depression or anxiety. [] Heart Score: C/O Chest Pain: No Risk Factors: Risk Factors: DM, Current or recent (<one month) smoker, HTN, HLP, family history of CAD, obesity. Risk Scores: Score 0 - 3: 2.5% MACE over next 6 weeks - Discharge Home Score 4 - 6: 20.3% MACE over next 6 weeks - Admit for Clinical Observation Score 7 - 10: 72.7% MACE over next 6 weeks - Early Invasive Strategies Allergies: Allergies: Allergies Coded Allergies Type Severity Reaction Last Updated Verified aspirin Adverse Reaction Intermediate UPSETS STOMACH 08/02/15 Yes Physical Exam: PE: Constitutional: Well developed, well nourished, no acute distress, non-toxic appearance. [] HENT: Normocephalic, atraumatic, bilateral external ears normal, oropharynx moist, no oral exudates, nose normal. [] Eyes: PERRLA, EOMI, conjunctiva normal, no discharge. [] Neck: Normal range of motion, no tenderness, supple, no stridor. [] Cardiovascular:Heart rate regular rhythm, no murmur [] Lungs & Thorax: Bilateral breath sounds clear to auscultation [] Abdomen: Bowel sounds normal, soft, tenderness located over the left lower quadrant, no masses, no pulsatile masses. [] Skin: Warm, dry, no erythema, no rash. [] Back: No tenderness, no CVA tenderness. [] Extremities: No tenderness, no cyanosis, no clubbing, ROM intact, no edema. [] Neurologic: Alert and oriented X 3, normal motor function, normal sensory function, no focal deficits noted. [] Psychologic: Affect normal, judgement normal, mood normal. [] Current Patient Data: Labs: Laboratory Tests Test 12/04/21 12:30 12/04/21 12:59 12/04/21 16:17 White Blood Count 4.5 x10^3/uL Red Blood Count 3.62 x10^6/uL Hemoglobin 10.8 g/dL Hematocrit 32.1 % Mean Corpuscular Volume 89 fL Mean Corpuscular Hemoglobin 30 pg Mean Corpuscular Hemoglobin Concent 34 g/dL Red Cell Distribution Width 14.8 % Platelet Count 280 x10^3/uL Neutrophils (%) (Auto) 64 % Lymphocytes (%) (Auto) 24 % Monocytes (%) (Auto) 10 % Eosinophils (%) (Auto) 2 % Basophils (%) (Auto) 1 % Neutrophils # (Auto) 2.9 x10^3/uL Lymphocytes # (Auto) 1.1 x10^3/uL Monocytes # (Auto) 0.4 x10^3/uL Eosinophils # (Auto) 0.1 x10^3/uL Basophils # (Auto) 0.0 x10^3/uL Sodium Level 135 mmol/L Potassium Level 4.6 mmol/L Chloride Level 104 mmol/L Carbon Dioxide Level 20 mmol/L Anion Gap 11 Blood Urea Nitrogen 5 mg/dL Creatinine 1.1 mg/dL Estimated GFR (Cockcroft-Gault) 60.3 BUN/Creatinine Ratio 5 Glucose Level 92 mg/dL Calcium Level 9.4 mg/dL Total Bilirubin 0.4 mg/dL Aspartate Amino Transf (AST/SGOT) 40 U/L Alanine Aminotransferase (ALT/SGPT) 25 U/L Alkaline Phosphatase 106 U/L Total Protein 8.3 g/dL Albumin 3.8 g/dL Albumin/Globulin Ratio 0.8 Lipase 351 U/L Urine Collection Type Void Urine Color (Auto) Colorless Urine Turbidity Clear Urine pH (Auto) 6.5 Urine Specific [place] 1.008 Urine Protein (Auto) Negative mg/dL Urine Glucose (Auto)(UA) Negative mg/dL Urine Ketones (Auto) Negative mg/dL Urine Blood (Auto) Negative Urine Nitrite Negative Urine Bilirubin (Auto) Negative Urine Urobilinogen (Auto) Normal mg/dL Urine Leukocyte Esterase (Auto) Negative Urine RBC 0 /HPF Urine WBC 1-4 /HPF Urine Squamous Epithelial Cells Few /LPF Urine Bacteria Few /HPF Urine Mucus Slight /LPF Current Medications Medications (Trade) Dose Ordered Sig/Declan Route PRN Reason Start Time Stop Time Status Last Admin Dose Admin Famotidine (Pepcid Vial) 20 mg 1X ONCE IVP 12/04/21 14:15 12/04/21 14:16 DC 12/04/21 14:24 Sodium Chloride 1,000 ml @ 999 mls/hr 1X ONCE IV 12/04/21 15:45 12/04/21 16:45 DC 12/04/21 15:38 Vital Signs: Vital Signs Date Time Temp Pulse Resp B/P (MAP) Pulse Ox O2 Delivery O2 Flow Rate FiO2 12/04/21 15:07 94 23 143/77 (99) 100 Room Air 12/04/21 14:37 94 20 147/78 (101) 100 Room Air 12/04/21 14:07 98 16 148/88 (108) 100 Room Air 12/04/21 13:37 102 21 148/85 (106) 100 Room Air 12/04/21 13:07 176/83 (114) Room Air 12/04/21 12:28 98 21 166/78 (107) 100 Room Air 12/04/21 11:44 98 22 144/85 (104) 100 Room Air 12/04/21 11:33 98.2 107 16 156/92 (113) 99 Room Air 98.2 Vital Signs Date Time Temp Pulse Resp B/P (MAP) Pulse Ox O2 Delivery O2 Flow Rate FiO2 12/04/21 11:33 98.2 107 16 156/92 (113) 99 Room Air 98.2 EKG: EKG: [] Radiology/Procedures: Radiology/Procedures: REASON: abdominal pain and fatigue PROCEDURE: CT ABDOMEN PELVIS WO CONTRAST CT abdomen and pelvis without contrast PQRS statement: CT scans at this facility use dose reduction including either automated exposure control, iterative reconstructions, and /or weight based radiation dosing via mA and kV modification when appropriate to reduce radiation dose to as low as reasonably achievable. HISTORY: Abdominal pain. Fatigue. Abdomen findings: Coronary calcified plaque. Lung bases are unremarkable. Focal hypodensity segment 4 of the liver likely focal fat adjacent to the falciform. Spleen, gallbladder, adrenal glands and kidneys are unremarkable. Calcified aorta and abdominal arteries and renal vascular calcification renal stefany. There is edema at the duodenum and posterior head of the pancreas with mild stranding along the anterior pararenal fascia on the retroperitoneum posterior to the duodenum. No bowel obstruction. The appendix is normal. No abdominal fluid. Lumbar disc bulges and facet spurring the spinal canal stenoses. Pelvis findings: Indistinct small hyperdensities of the uterus largest measuring 2 cm many small leiomyomas. Ovaries atrophic somewhat obscured by surrounding pelvic bowel. Moderate amount of stool within the rectum. Bladder unremarkable. Streak artifact from right hip arthroplasty. IMPRESSION: 1. Edema of the duodenum also involving the posterior head of the pancreas. This is likely duodenitis. Superimposed pancreatitis is also possible. 3. The appendix is normal. 3. Incidental findings as described above. Electronically signed by: Tee Lopez MD (12/04/2021 1:15 PM) [facility] [place] Decision Making: Course & Med Decision Making Pertinent Labs and Imaging studies reviewed. (See chart for details) 546 I reviewed radiological and laboratory results with patient and informed her that she had a large amount of stool in her colon, as well as some edema in her duodenum which could be a result of gastritis. Patient is instructed to take a bottle of magnesium citrate tonight to help clear the stool this in her colon, and tomorrow start MiraLAX 1 capful on a daily basis, she is also going to be given 40 mg Moes omeprazole to take on a daily basis and due to the fact that she reports an increased frequency in her urination I will treat her for ur inary tract infection as well patient verbalizes understanding of this and agreeable with plan of care. Dragon Disclaimer: Dragon Disclaimer: This electronic medical record was generated, in whole or in part, using a voice recognition dictation system. Departure Departure Impression: Primary Impression: Gastritis and duodenitis Additional Impressions: Urinary tract infection Qualified Codes: N30.00 - Acute cystitis without hematuria Constipation Qualified Codes: K59.00 - Constipation, unspecified Disposition: HOME / SELF CARE / HOMELESS Condition: STABLE Referrals: LAITH HILLMAN JR, MD (PCP) Patient Instructions: Constipation, Adult, Gastritis, Adult, Urinary Tract Infection Additional Instructions: Macrobid take 1 tablet twice daily for 7 full days for urinary tract infection Drink 1 bottle of magnesium citrate tonight, start tomorrow MiraLAX 1 capful daily Omeprazole 40 mg take 1 tablet daily Follow-up with your primary care physician in the next 5 to 7 days for further evaluation and management of your abdominal pain Return here to the emergency department should you have nausea and vomiting, d evelopment of a fever, or you develop chest pain. Scripts Omeprazole (OMEPRAZOLE) 40 Mg Capsule. 1 CAP PO DAILY, #30 CAP Prov: BG STONE RN STAFFING 12/04/21 Nitrofurantoin Monohyd/M-Cryst (MACROBID 100 MG CAPSULE) 100 Mg Capsule 1 CAP PO BID for 7 Days, #14 CAP 0 Refills Prov: BG STONE RN STAFFING 12/04/21 BG STONE RN STAFFING December 04, 2021 12:39
[2021-12-04 13:21] LABS: CALCIUM 9.4 mg/dL (8.5-10.1); CREATININE 1.1 mg/dL (0.6-1.0); GFR 60.3; POTASSIUM 4.6 mmol/L (3.5-5.1)
[2021-12-04 13:26] LABS: ALBUMIN 3.8 g/dL (3.4-5.0); ALBUMIN/GLOBULIN RATIO 0.8 (1.0-1.7); TOTAL BILIRUBIN 0.4 mg/dL (0.2-1.0); TOTAL PROTEIN 8.3 g/dL (6.4-8.2)
[2021-12-04] MEDS ORDERED: FAMOTIDINE 20 MG/2 ML VIAL IVP ONE (14:15)
[2021-12-04] MEDS ORDERED: IV NORMAL SALINE 1000ML BAG 1,000 ML IV ONE (15:45)
--- NOTE | 2021-12-04 15:59 | RAD ---
CT abdomen and pelvis without contrast PQRS statement: CT scans at this facility use dose reduction including either automated exposure cont rol, iterative reconstructions, and /or weight based radiation dosing via mA and kV modification when appropriate to reduce radiation dose to as low as reasonably achievable. HISTORY: Abdominal pain. Fatigue. Abdomen findings: Coronary calcified plaque. Lung bases are unremarkable. Focal hypodensity segment 4 of the liver likely focal fat adjacent to the falciform. Spleen, gallbladder, adrenal glands and kid neys are unremarkable. Calcified aorta and abdominal arteries and renal vascular calcification renal stefany. There is edema at the duodenum and posterior head of the pancreas with mild stranding along the anterior pararenal fascia on the retroperitoneum posterior to the duodenum. No bowel obstruction. Th e appendix is normal. No abdominal fluid. Lumbar disc bulges and facet spurring the spinal canal sten oses. Pelvis findings: Indistinct small hyperdensities of the uterus largest measuring 2 cm many small leio myomas. Ovaries atrophic somewhat obscured by surrounding pelvic bowel. Moderate amount of stool with in the rectum. Bladder unremarkable. Streak artifact from right hip arthroplasty. IMPRESSION: 1. Edema of the duodenum also involving the posterior head of the pancreas. This is likely duodenitis . Superimposed pancreatitis is also possible. 3. The appendix is normal. 3. Incidental findings as described above. Electronically signed by: Tee Lopez MD (12/04/2021 1:15 PM) [facility]
[2021-12-04 16:43] LABS: BACTERIA,URINE FEW /HPF (0-FEW); RBC,URINE 0 /HPF (0-2)
[2021-12-04] MEDS ORDERED: NITR100C62 PO (17:09)
[2021-12-04] MEDS ORDERED: OMEP40CA7 PO (17:09)
[2021-12-04 17:30] VITALS: BP 154/73
== END 2021-12-04 17:44 | disposition home or self-care (01) ==
LOC: ER 11:14
DX: N30.00 Acute cystitis without hematuria (principal); K59.00 Constipation, unspecified; K29.70 Gastritis, unspecified, without bleeding; K29.80 Duodenitis without bleeding; J44.9 Chronic obstructive pulmonary disease, unspecified; I10 Essential (primary) hypertension; I25.2 Old myocardial infarction; F17.200 Nicotine dependence, unspecified, uncomplicated; Z88.6 Allergy status to analgesic agent
CPT/HCPCS: 36415; 74176; 80053; 81001; 83690; 85025; 96361; 96374; 99285; J3490; J7030

== ENCOUNTER 2021-12-09 18:18 | Emergency (ER) | payer MEDICARE, MEDICAID ==
[~2021-12-09] VITALS: Ht 162.6 cm; Wt 54.0 kg
[~2021-12-09 18:18] MED LIST changes: +NITR100C62 PO; +OMEP40CA7 PO
[2021-12-09 19:11] LABS: BASO % 1 % (0-3); EOS % 0 % (0-3); HEMATOCRIT 31.1 % (36.0-47.0); HEMOGLOBIN 10.3 g/dL (12.0-15.5); LYMPH # 0.9 x10^3/uL (1.0-4.8); LYMPH % 14 % (24-48); MEAN CORPUSCULAR HEMOGLOBIN 30 pg (25-35); MEAN CORPUSCULAR HGB CONC 33 g/dL (31-37); MEAN CORPUSCULAR VOLUME 89 fL (79-100); MONO # 0.5 x10^3/uL (0.0-1.1); MONO % 9 % (0-9); NEUT # 4.6 x10^3/uL (1.8-7.7); NEUT % 76 % (31-73); PLATELET COUNT 392 x10^3/uL (140-400); RED CELL DISTRIBUTION WIDTH 14.3 % (11.5-14.5)
[2021-12-09 19:21] LABS: PROTHROMBIN TIME PATIENT 13.8 SEC (11.7-14.0)
[2021-12-09 19:24] LABS: CALCIUM 9.1 mg/dL (8.5-10.1); CREATININE 1.6 mg/dL (0.6-1.0); GFR 39.1; POTASSIUM 5.1 mmol/L (3.5-5.1)
[2021-12-09 19:30] LABS: ALBUMIN/GLOBULIN RATIO 1.1 (1.0-1.7); MAGNESIUM 1.7 mg/dL (1.8-2.4); TOTAL BILIRUBIN 0.4 mg/dL (0.2-1.0); TOTAL PROTEIN 7.8 g/dL (6.4-8.2)
[2021-12-09 19:32] LABS: HYALINE CASTS, URINE MODERATE /HPF
[2021-12-09 19:33] LABS: BACTERIA,URINE MODERATE /HPF (0-FEW); RBC,URINE 0 /HPF (0-2)
--- NOTE | 2021-12-09 19:40 | RAD ---
Exam: Chest one view INDICATION: Syncope, pain TECHNIQUE: Frontal view of the chest Comparisons: 05/27/2021 FINDINGS: The cardiomediastinal silhouette and pulmonary vessels are within normal limits. The lung and pleural spaces are clear. IMPRESSION: No acute cardiopulmonary process. Electronically signed by: Jayjay Ford MD (12/09/2021 7:38 PM) [facility]
[2021-12-09] MEDS ORDERED: IV NORMAL SALINE 1000ML BAG 1,000 ML IV ONE (20:45)
[2021-12-09] MEDS ORDERED: ONDANSETRON PF 4 MG/2 ML VIAL. ONE (20:48)
[2021-12-09] MEDS ORDERED: FAMOTIDINE 20 MG/2 ML VIAL ONE (20:48)
[2021-12-09] MEDS ORDERED: MORPHINE SULFATE 4 MG/ML INJ. ONE (20:48)
[2021-12-09] MEDS ORDERED: MORPHINE SULFATE 4 MG/ML INJ. IVP ONE (21:15)
[2021-12-09] MEDS ORDERED: FAMOTIDINE 20 MG/2 ML VIAL IVP ONE (21:15)
[2021-12-09] MEDS ORDERED: ONDANSETRON PF 4 MG/2 ML VIAL. IVP ONE (21:15)
[2021-12-09 21:50] VITALS: BP 152/87
--- NOTE | 2021-12-10 00:42 | PHYS DOC ---
Past Medical History Past Medical History: COPD, Hypertension, [place] Additional Past Medical Histor: "I've passed out before" [place] 2009, Past Surgical History: No Surgical History Smoking Status: Never Smoker Alcohol Use: None Drug Use: None General Adult EDM: Chief Complaint: SYNCOPE HPI: HPI: 66-year-old female, past medical history hypertension, recently diagnosed with duodenitis here, presents with near syncope today. Patient was standing in line with her granddaughter, and nearly passed out however she did not hit the floor and her granddaughter caught her. Complaining of epigastric abdominal pain that has been intermittent since her discharge from the ED recently. Per EMS, BP was 76/52 upon arrival, status post 100 cc of NS and BP improved to 120/76. Patient denies fever, chills, nausea, vomiting, chest pain, shortness of breath, palpitations. Normal stools, no urinary complaints. Review of Systems: Review of Systems: Constitutional: Denies fever or chills. [] Eyes: Denies change in visual acuity. [] HENT: Denies nasal congestion or sore throat. [] Respiratory: Denies cough or shortness of breath. [] Cardiovascular: +near syncope, Denies chest pain or edema. [] GI: + abdominal pain, no nausea, vomiting, bloody stools or diarrhea. [] : Denies dysuria. [] Musculoskeletal: Denies back pain or joint pain. [] Integument: Denies rash. [] Neurologic: Denies headache, focal weakness or sensory changes. [] Endocrine: Denies polyuria or polydipsia. [] Lymphatic: Denies swollen glands. [] Psychiatric: Denies depression or anxiety. [] Heart Score: C/O Chest Pain: No Risk Factors: Risk Factors: DM, Current or recent (<one month) smoker, HTN, HLP, family history of CAD, obesity. Risk Scores: Score 0 - 3: 2.5% MACE over next 6 weeks - Discharge Home Score 4 - 6: 20.3% MACE over next 6 weeks - Admit for Clinical Observation Score 7 - 10: 72.7% MACE over next 6 weeks - Early Invasive Strategies Current Medications: Current Medications Medications (Trade) Dose Ordered Sig/Declan Start Time Stop Time Status Last Admin Dose Admin Famotidine (Pepcid Vial) 20 mg STK-MED ONCE 12/09/21 20:48 5/23/22 20:48 DC Morphine Sulfate (Morphine Sulfate) 4 mg STK-MED ONCE 12/09/21 20:48 12/09/21 20:48 DC Ondansetron HCl (Zofran) 4 mg STK-MED ONCE 12/09/21 20:48 12/09/21 20:48 DC Sodium Chloride 1,000 ml @ 999 mls/hr 1X ONCE 12/09/21 20:45 12/09/21 21:45 DC 12/09/21 20:50 999 MLS/HR Allergies: Allergies: Allergies Coded Allergies Type Severity Reaction Last Updated Verified aspirin Adverse Reaction Intermediate UPSETS STOMACH 12/09/21 Yes Physical Exam: PE: Constitutional: Well developed, well nourished, no acute distress, non-toxic a ppearance. [] HENT: Normocephalic, atraumatic, bilateral external ears normal, oropharynx moist, no oral exudates, nose normal. [] Eyes: PERRLA, EOMI, conjunctiva normal, no discharge. [] Neck: Normal range of motion, no tenderness, supple, no stridor. [] Cardiovascular:Heart rate regular rhythm, no murmur [] Lungs & Thorax: Bilateral breath sounds clear to auscultation [] Abdomen: Bowel sounds normal, soft, no tenderness, no masses, no pulsatile masses. [] Skin: Warm, dry, no erythema, no rash. [] Back: No tenderness, no CVA tenderness. [] Extremities: No tenderness, no cyanosis, no clubbing, ROM intact, no edema. [] Neurologic: Alert and oriented X 3, normal motor function, normal sensory function, no focal deficits noted. [] Psychologic: Affect normal, judgement normal, mood normal. [] Current Patient Data: Labs: Laboratory Tests Test 12/09/21 19:00 White Blood Count 6.0 x10^3/uL (4.0-11.0) Red Blood Count 3.50 x10^6/uL (3.50-5.40) Hemoglobin 10.3 g/dL (12.0-15.5) L Hematocrit 31.1 % (36.0-47.0) L Mean Corpuscular Volume 89 fL (79-100) Mean Corpuscular Hemoglobin 30 pg (25-35) Mean Corpuscular Hemoglobin Concent 33 g/dL (31-37) Red Cell Distribution Width 14.3 % (11.5-14.5) Platelet Count 392 x10^3/uL (140-400) Neutrophils (%) (Auto) 76 % (31-73) H Lymphocytes (%) (Auto) 14 % (24-48) L Monocytes (%) (Auto) 9 % (0-9) Eosinophils (%) (Auto) 0 % (0-3) Basophils (%) (Auto) 1 % (0-3) Neutrophils # (Auto) 4.6 x10^3/uL (1.8-7.7) Lymphocytes # (Auto) 0.9 x10^3/uL (1.0-4.8) L Monocytes # (Auto) 0.5 x10^3/uL (0.0-1.1) Eosinophils # (Auto) 0.0 x10^3/uL (0.0-0.7) Basophils # (Auto) 0.0 x10^3/uL (0.0-0.2) Prothrombin Time 13.8 SEC (11.7-14.0) Prothrombin Time INR 1.1 (0.8-1.1) Urine Collection Type Unknown Urine Color (Auto) Yellow Urine Turbidity Clear Urine pH (Auto) 6.0 (<5.0-8.0) Urine Specific [place] 1.012 (1.000-1.030) Urine Protein (Auto) Negative mg/dL (Negative) Urine Glucose (Auto)(UA) Negative mg/dL (Negative) Urine Ketones (Auto) Negative mg/dL (Negative) Urine Blood (Auto) Negative (Negative) Urine Nitrite Negative (Negative) Urine Bilirubin (Auto) Negative (Negative) Urine Urobilinogen (Auto) Normal mg/dL (Normal) Urine Leukocyte Esterase (Auto) Negative (Negative) Urine RBC 0 /HPF (0-2) Urine WBC 1-4 /HPF (0-4) Urine Squamous Epithelial Cells Many /LPF Urine Bacteria Moderate /HPF (0-FEW) Urine Hyaline Casts Moderate /HPF Urine Mucus Slight /LPF Sodium Level 134 mmol/L (136-145) L Potassium Level 5.1 mmol/L (3.5-5.1) Chloride Level 103 mmol/L (98-107) Carbon Dioxide Level 16 mmol/L (21-32) L Anion Gap 15 (6-14) H Blood Urea Nitrogen 10 mg/dL (7-20) Creatinine 1.6 mg/dL (0.6-1.0) H Estimated GFR (Cockcroft-Gault) 39.1 BUN/Creatinine Ratio 6 (6-20) Glucose Level 94 mg/dL (70-99) Calcium Level 9.1 mg/dL (8.5-10.1) Magnesium Level 1.7 mg/dL (1.8-2.4) L Total Bilirubin 0.4 mg/dL (0.2-1.0) Aspartate Amino Transferase (AST) 40 U/L (15-37) H Alanine Aminotransferase (ALT) 21 U/L (14-59) Alkaline Phosphatase 99 U/L (46-116) Troponin I High Sensitivity 6 ng/L (4-50) TE-Pvv-N-Type Natriuretic Peptide 340 pg/mL (0-124) H Total Protein 7.8 g/dL (6.4-8.2) Albumin 4.0 g/dL (3.4-5.0) Albumin/Globulin Ratio 1.1 (1.0-1.7) Lipase 905 U/L (73-393) H Laboratory Tests 12/09/21 19:00 Laboratory Tests 12/09/21 19:00 Vital Signs: Vital Signs Date Time Temp Pulse Resp B/P (MAP) Pulse Ox O2 Delivery O2 Flow Rate FiO2 12/09/21 21:50 107 152/87 (108) 99 Room Air 12/09/21 20:51 2 12/09/21 18:18 98.6 98.6 EKG: EKG: [] Radiology/Procedures: Radiology/Procedures: [] Course & Med Decision Making: Course & Med Decision Making Pertinent Labs and Imaging studies reviewed. (See chart for details) Additional Social History: PMD from non-affiliated facility. Patient Lives at home. Family History: Non-pertinent to today's complaint. Nursing Notes Reviewed Previous Medical Records requested via [facility] Web: Reviewed by me. EMERGENT LABS AND DIAGNOSTIC STUDIES: Results were reviewed and interpreted by me as below 12-lead EKG Interpretation by Keiry Gillis MD: Sinus tachycardia 103 beats per minute Normal axis Normal intervals No ectopy No PVC No other acute ST or T wave abnormalities Overall impression is abnormal EKG PROCEDURE: PORTABLE CHEST 1V IMPRESSION: No acute cardiopulmonary process. EMERGENCY DEPARTMENT COURSE/ MEDICAL DECISION MAKING: The patient was placed on a monitor car operator, continuous pulse oximetry and was given supplemental oxygen. I examined the patient, evaluated and addressed patient's chief complaint. The patient was treated with IV fluids, morphine, Zofran. Renal function is at baseline. White blood cell count is within normal. Afebrile and vitals within normal. Tolerating p.o. Given patient's near syncope and history of duodenitis and previous CT from 12/04 suggestive of pancreatitis, and elevated lipase today recommended admission at least for observation/fluids however patient states she would like to go home. States that she already has a follow-up appointment this week with her primary and recommended outpatient gastroenterology evaluation and does not wish to be admitted and feels better. Stable for discharge home with scheduled outpatient follow-up, strict return precautions given. The patient understands that todays Emergency Department evaluation does not represent a comprehensive medical workup, and it is impossible to diagnose all possible illnesses from a single Emergency Department visit. The patient verbalized understanding that it is absolutely necessary to have follow-up with regular primary care physician within 1-2 days for more detailed workup and continued exam. I explained the findings and plan to the patient, who expressed verbal understanding and agreed with plan for discharge and follow up. The patient was given after care instructions and welcomed to return to the ED for re-evaluation in 8-12 hours, especially for any new or worsening symptoms. The patient was stable at the time of discharge. DIAGNOSTIC IMPRESSION: 1. Near syncope 2. pancreatitis 3. duodenitis DISPOSITION: Disposition: Discharge Home. Condition: Improved Follow-Up: PMD, gastroenterology Prescriptions: None Return to the Emergency Department for new or worsening symptoms. Dragon Disclaimer: Dragon Disclaimer: This electronic medical record was generated, in whole or in part, using a voice recognition dictation system. Departure Departure Impression: Primary Impression: Duodenitis Additional Impressions: Pre-syncope Pancreatitis Disposition: 01 HOME / SELF CARE / HOMELESS Condition: STABLE Referrals: LAITH HILLMAN JR, MD (PCP) Patient Instructions: Syncope Additional Instructions: Please follow up with your primary care provider as scheduled. SOPHIA GILLIS MD December 10, 2021 00:42
--- NOTE | 2021-12-10 03:52 | EKG ---
[facility] [address] [place] [address] Test Date: 2021-12-09 Test Time: 18:43:17 Pat Name: LAURA PINEDA Department: Room: Gender: F Senior Regulatory Affairs Specialist: : [id number] Requested By: SOPHIA KNOX Order Number: [id number] Reading MD: Abel Ramirez MD Measurements Intervals [place] Rate: 103 P: 51 [place]: 168 QRS: 32 QRSD: 84 T: 46 QT: 344 QTc: 453 Interpretive Statements SINUS TACHYCARDIA Electronically Signed On 12-10-2021 8:59:16 CDT by Abel Ramirez MD
== END 2021-12-09 22:00 | disposition home or self-care (01) ==
LOC: ER 18:18
DX: K85.90 Acute pancreatitis without necrosis or infection, unspecified (principal); K29.80 Duodenitis without bleeding; R55 Syncope and collapse; J44.9 Chronic obstructive pulmonary disease, unspecified; I10 Essential (primary) hypertension; I25.2 Old myocardial infarction; Z88.6 Allergy status to analgesic agent
CPT/HCPCS: 36415; 71045; 80053; 81001; 83690; 83735; 83880; 84484; 85025; 85610; 87086; 93005; 96361; 96374; 96375; 99285; J2270; J2405; J3490; J7030